=== PATIENT | male | born 1950 | race Caucasian/White ===

== ENCOUNTER 2017-09-23 09:22 | Emergency (ER) | payer MEDICARE ==
[~2017-09-23] VITALS: Ht 190.5 cm; Wt 108.9 kg
--- OUTSIDE RECORDS SUMMARY | 2017-09-23 09:20 | XMS REPORT | Clinical Summary ---
Author Author [facility] Organization [facility] Address Unknown Phone Unavailable Care Team Providers Care Cabinet Professional Name Role Phone Justin Noe DO PCP Allergies Active Allergy Reactions Severity Noted Date Comments Penicillins 10/07/2016 Current Medications Prescription Sig. Disp. Refills Start End Date Status Date meloxicam (MOBIC) 15 mg Take 1 tablet (15 mg 30 tablet 2 06/03/20 Active tablet total) by mouth daily. 17 HYDROcodone-acetaminophen Take 1 tablet by mouth 10/31/19 Discontin (NORCO) 7.5-325 mg per every 6 (six) hours as 17 ued tablet needed for moderate pain. traMADol (ULTRAM) 50 mg Take 1 tablet (50 mg 30 tablet 0 10/09/ tablet total) by mouth every 6 17 17 (six) hours as needed for moderate pain for up to 30 doses. ciprofloxacin (CIPRO) 500 Take 1 tablet (500 mg 28 tablet 0 10/22/19 11/05/19 MG tablet total) by mouth 2 (two) 17 17 times a day for 14 days. meloxicam (MOBIC) 15 mg Take 15 mg by mouth 06/03/20 Discontin tablet daily. 17 ued cefTRIAXone (ROCEPHIN) 2 Infuse 2 g into a venous 04/21/20 05/31/20 g in 100 ML Mini-Bag Plus catheter daily for 40 17 17 days. acetaminophen-codeine Take 1-2 tablets by mouth 40 tablet 0 04/21/20 04/28/20 (TYLENOL WITH CODEINE #3) every 6 (six) hours as 17 17 300-30 mg per tablet needed for moderate pain for up to 7 days. acetaminophen-codeine Take 1 tablet by mouth 06/30/20 Discontin (TYLENOL WITH CODEINE #3) every 6 (six) hours as 17 ued 300-30 mg per tablet needed for moderate pain. Active Problems Problem Noted Date Infected hardware in left leg 04/16/2017 11/11/2016 Open fracture of calcaneus 10/07/2016 Encounters Date Type Specialty Care Team Description 09/17/2017 Telephone Orthopedic Surgery Sandie Kelly MD 09/01/2017 Office Visit Orthopedic Surgery Sandie Kelly MD Left foot pain (Primary Dx) 07/13/2017 Telephone Orthopedic Surgery Lydia Abrams MA 06/30/2017 Office Visit Orthopedic Surgery Sandie Kelly MD Open displaced avulsion fracture of tuberosity of left calcaneus with malunion, subsequent encounter (Primary Dx) 06/11/2017 Infusion Oncology Sandie Kelly MD Infected hardware in left leg, initial encounter (Primary Dx) 06/10/2017 Infusion Oncology Sandie Kelly MD Infected hardware in left leg, initial encounter (Primary Dx) 06/09/2017 Infusion Oncology Sandie Kelly MD Infected hardware in left leg, initial encounter (Primary Dx) 06/08/2017 Infusion Oncology Sandie Kelly MD Infected hardware in left leg, initial encounter (Primary Dx) 06/07/2017 Infusion Oncology Sandie Kelly MD Infected hardware in left leg, initial encounter (Primary Dx) 06/06/2017 Infusion Oncology Sandie Kelly MD Infected hardware in left leg, initial encounter (Primary Dx) 06/05/2017 Infusion Oncology Sandie Kelly MD Infected hardware in left leg, initial encounter (Primary Dx) 06/03/2017 Office Visit Orthopedic Surgery Sandie Kelly MD Infected hardware in left lower extremity, sequela (Primary Dx) 06/03/2017 Infusion Oncology Infected hardware in left leg, initial encounter (Primary Dx) 06/02/2017 Infusion Oncology Sandie Kelly MD Infected hardware in left leg, initial encounter (Primary Dx) 06/01/2017 Infusion Oncology Infected hardware in left leg, initial encounter (Primary Dx) 05/31/2017 Infusion Oncology Infected hardware in left leg, initial encounter (Primary Dx) 05/30/2017 Infusion Oncology Infected hardware in left leg, initial encounter (Primary Dx) 05/28/2017 Infusion Oncology Infected hardware in left leg, initial encounter (Primary Dx) 05/27/2017 Infusion Oncology Infected hardware in left leg, initial encounter (Primary Dx) 05/26/2017 Telephone Orthopedic Surgery Sandie Kelly MD 05/24/2017 Infusion Oncology Infected hardware in left leg, initial encounter (Primary Dx) 05/23/2017 Infusion Oncology Infected hardware in left leg, initial encounter (Primary Dx) 05/22/2017 Infusion Oncology Infected hardware in left leg, initial encounter (Primary Dx) 05/21/2017 Infusion Oncology Infected hardware in left leg, initial encounter (Primary Dx) 05/20/2017 Infusion Oncology Infected hardware in left leg, initial encounter (Primary Dx) 05/19/2017 Infusion Oncology Infected hardware in left leg, initial encounter (Primary Dx) 05/18/2017 Infusion Oncology Infected hardware in left leg, initial encounter (Primary Dx) 05/16/2017 Infusion Oncology Infected hardware in left leg, initial encounter (Primary Dx) 05/13/2017 Infusion Oncology Infected hardware in left leg, initial encounter (Primary Dx) 05/12/2017 Infusion Oncology Infected hardware in left leg, initial encounter (Primary Dx) 05/11/2017 Infusion Oncology Infected hardware in left leg, initial encounter (Primary Dx) 05/10/2017 Infusion Oncology Sandie Kelly MD Infected hardware in left leg, initial encounter (Primary Dx) 05/09/2017 Infusion Oncology Infected hardware in left leg, initial encounter (Primary Dx) 05/08/2017 Infusion Oncology Infected hardware in left leg, initial encounter (Primary Dx) 05/07/2017 Infusion Oncology Infected hardware in left leg, initial encounter (Primary Dx) 05/06/2017 Infusion Oncology Infected hardware in left leg, initial encounter (Primary Dx) 05/05/2017 Infusion Oncology Infected hardware in left leg, initial encounter (Primary Dx) 05/05/2017 Office Visit Orthopedic Surgery Sandie Kelly MD Open displaced avulsion fracture of tuberosity of left calcaneus with malunion, subsequent encounter (Primary Dx) 05/03/2017 Infusion Oncology Infected hardware in left leg, initial encounter (Primary Dx) 05/02/2017 Infusion Oncology Infected hardware in left leg, initial encounter (Primary Dx) 05/01/2017 Infusion Oncology Infected hardware in left leg, initial encounter (Primary Dx) 04/30/2017 Infusion Oncology Infected hardware in left leg, initial encounter (Primary Dx) 04/28/2017 Infusion Oncology Infected hardware in left leg, initial encounter (Primary Dx) 04/27/2017 Infusion Oncology Infected hardware in left leg, initial encounter (Primary Dx) 04/26/2017 Infusion Oncology Infected hardware in left leg, initial encounter (Primary Dx) 04/25/2017 Infusion Oncology Infected hardware in left leg, initial encounter (Primary Dx) 04/24/2017 Infusion Oncology Infected hardware in left leg, initial encounter (Primary Dx) 04/23/2017 Infusion Oncology Infected hardware in left leg, initial encounter (Primary Dx) 04/23/2017 Orders Only Oncology Suni Aguilar, PADMA 04/22/2017 Infusion Oncology Sandie Kelly MD Infected hardware in left leg, initial encounter (Primary Dx) 04/16/2017 Hospital General Surgery Sandie Kelly MD Encounter for removal of - Encounter internal fixation device; 04/21/2017 Infection following procedure, subsequent encounter; Acute osteomyelitis-ankle/foot, left 04/16/2017 Procedure Pass General Surgery 04/16/2017 Surgery General Surgery Sandie Kelly MD Hardware Removal (colonize bone screws), Debridement Left Heel, Culture Left Calcaneum 04/03/2017 Anesthesia General Surgery Mayelin Saavedra Event MD 04/01/2017 Hospital Radiology Sandie Kelly MD Preop testing Encounter 04/01/2017 Pre-Admit Pre-Admission Testing Sandie Kelly MD Preop testing (Primary Testing Dx) Appointment 03/17/2017 Office Visit Orthopedic Surgery Sandie Kelly MD Open displaced avulsion fracture of tuberosity of left calcaneus with malunion, subsequent encounter (Primary Dx) 02/17/2017 Office Visit Orthopedic Surgery Sandie Kelly MD Open displaced avulsion fracture of tuberosity of left calcaneus with malunion, subsequent encounter (Primary Dx) 01/14/2017 Office Visit Orthopedic Surgery Sandie Kelly MD Open displaced avulsion fracture of tuberosity of left calcaneus with malunion, subsequent encounter (Primary Dx) 01/14/2017 Telephone Orthopedic Sandie Sharma MD 12/17/2016 Office Visit Orthopedic Surgery Sandie Kelly MD Arthralgia of left ankle (Primary Dx) 12/02/2016 Telephone Orthopedic Sandie Sharma MD 11/27/2016 Office Visit Orthopedic Surgery Sandie Kelly MD Open displaced avulsion fracture of tuberosity of left calcaneus with malunion, subsequent encounter (Primary Dx) 11/19/2016 Office Visit Orthopedic Surgery Sandie Kelly MD Open displaced avulsion fracture of tuberosity of left calcaneus with malunion, subsequent encounter (Primary Dx) 11/11/2016 Office Visit Orthopedic Surgery Sandie Kelly MD Open displaced avulsion fracture of tuberosity of left calcaneus with malunion, subsequent encounter (Primary Dx) 11/07/2016 Office Visit Orthopedic Surgery Sandie Kelly MD Open displaced avulsion fracture of tuberosity of left calcaneus with malunion, subsequent encounter (Primary Dx) 11/04/2016 Office Visit Orthopedic Surgery Sandie Kelly MD Open displaced avulsion fracture of tuberosity of left calcaneus with malunion, subsequent encounter (Primary Dx) 10/30/2016 Office Visit Orthopedic Surgery Sandie Kelly MD 10/28/2016 Office Visit Orthopedic Surgery Sandie Kelly MD Open displaced avulsion fracture of tuberosity of left calcaneus with malunion, subsequent encounter (Primary Dx) 10/23/2016 Office Visit Orthopedic Sandie Sharma MD 10/21/2016 Office Visit Orthopedic Sandie Sharma MD 10/21/2016 Documentation Orthopedic Surgery Andrey Rios MD 10/21/2016 Orders Only Orthopedic Surgery Andrey Rios MD 10/16/2016 Office Visit Orthopedic Surgery Sandie Kelly MD Open displaced avulsion fracture of tuberosity of left calcaneus with malunion, subsequent encounter (Primary Dx) 10/14/2016 Office Visit Orthopedic Surgery Sandie Kelly MD Open displaced avulsion fracture of tuberosity of left calcaneus with malunion, subsequent encounter (Primary Dx) 10/09/2016 Office Visit Orthopedic Surgery Sandie Kelly MD Open displaced avulsion fracture of tuberosity of left calcaneus with malunion, subsequent encounter (Primary Dx) 10/07/2016 Office Visit Orthopedic Surgery Sandie Kelly MD Chronic pain of left ankle (Primary Dx); Open displaced avulsion fracture of tuberosity of left calcaneus with malunion, subsequent encounter 09/25/2016 [facility] General Surgery Physician, Emergency, MD - Encounter Kurt Chacko, 09/28/2016 DO Jayashree Serna MD 09/25/2016 Orders Only Emergency Medicine Kurt Chacko, after 09/22/2016 Family History Medical History Relation Name Comments Cancer Mother Relation Name Status Comments Mother Lung cancer Social History Tobacco Use Types Packs/Day Years Used Date Never Smoker Smokeless Tobacco: Never Used Alcohol Use Drinks/Week oz/Week Comments Yes 2 Cans of 1.2 2 week beer Sex Assigned at Date Recorded Not on file Last Filed Vital Signs Vital Sign Reading Time Taken Blood Pressure 156/87 06/11/2017 6:41 AM CDT Pulse 75 06/11/2017 6:41 AM CDT Temperature 37.1 C (98.7 F) 06/11/2017 6:41 AM CDT Respiratory Rate 19 06/11/2017 6:41 AM CDT Oxygen Saturation 98% 06/11/2017 6:41 AM CDT Inhaled Oxygen - - Concentration Weight 99.8 kg (220 lb) 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 HC US GUIDED VASCULAR Routine 04/18/2017 Results for this ACCESS 7:01 PM CDT procedure are in the results section. HC CVL PICC INSERT 5 YRS Routine 04/18/2017 Results for this OR > 7:01 PM CDT procedure are in the results section. IL AN ELECTIVE Routine 04/16/2017 SUPRAGLOTTIC AIRWAY 1:15 PM CDT Procedure Note - Imelda Augustin, MACHINE OPERATOR HELPER - 04/16/2017 1:14 PM CDT Airway Date/Time: 04/16/2017 1:11 PM Performed by: IMELDA AUGUSTIN Authorized by: IMELDA AUGUSTIN Location: OR Urgency: Elective Difficult Airway: No Anesthesio logist: EDU HOWARD Resident/C RNA: IMELDA AUGUSTIN Preoxygena moy with 100% O2: Yes C-spine Precaution s Maintained Throughout : Yes Mask Ventilatio n: Easy mask Final Airway Type: Supraglott ic airway Final LMA: Classic LMA Size: 5 Number of Attempts at Approach: 1 after 09/22/2016 Results * Estimated GFR (09/01/2017 1:50 PM) Only the most recent of 8 results within the time period is included. Component Value Ref Range GFR Non Af Amer 75 mL/min/1.73 m2 GFR Af Amer >90 mL/min/1.73 m2 Comment: Chronic kidney disease: <60 mL/min/1.73m2 Kidney failure: <15 mL/min/1.73m2 The estimated GFR is calculated from the IDMS-traceable Modification of Diet in Renal Disease Equation. The accuracy of the calculation is poor when the creatinine is normal. Calculated values >90 mL/min/1.73m2 are not reported. This equation has not been validated in children (<18 years), women, the elderly (>70 years), or ethnic groups other than Caucasians and Americans. Specimen Performing Laboratory Plasma specimen [facility] DEPARTMENT OF PATHOLOGY AND GENOMIC MEDICINE [address] [place] [address] * Basic metabolic panel (09/01/2017 1:50 PM) Only the most recent of 7 results within the time period is included. Component Value Ref Range Sodium 139 135 - 150 mEq/L Potassium 4.5 3.5 - 5.0 mEq/L Chloride 104 100 - 109 mEq/L CO2 28 24 - 32 mmol/L Anion gap 7 7 - 15 mEq/L Comment: Starting from November , anion gap calculation no longer incorporates potassium. Please note the change. BUN 27 (H) 7 - 18 mg/dL Creatinine 1.0 0.8 - 1.5 mg/dL Glucose 53 (L) 65 - 100 mg/dL Calcium 9.2 8.6 - 10.7 mg/dL Specimen Performing Laboratory Plasma specimen [facility] DEPARTMENT OF PATHOLOGY AND GENOMIC MEDICINE [address] [place] [address] * XR Calcaneus 2+ Vw Left (09/01/2017 1:13 PM) Only the most recent of 7 results within the time period is included. Specimen Performing Laboratory [facility] [address] [place] [id number] Narrative AP and axial view of the left heel: The displaced comminuted calcaneal tuberosity fracture has healed and is one solid mass. There is certainly some malunion * PICC INSERTION (04/18/2017 7:01 PM) John Dickey 04/18/20177:01 PM PICC insertion Date/Time: 04/18/2017 7:00 PM Performed by: ZENON DICKEY Authorized by: SANDIE KELLY Consent: Consent obtained:Verbal and written Consent given by:Patient Risks discussed: arterial puncture, incorrect placement, nerve damage, bleeding, infection, superficial thrombus and deep vein thrombus Alternatives discussed:Delayed treatment and alternative treatment Smoot protocol: Procedure explained and questions answered to patient or proxy's satisfaction: yes Relevant documents present and verified: yes Test results available and properly labeled: yes Imaging studies available: yes Required blood products, implants, devices, and special equipment available: yes Site/side marked: yes Immediately prior to procedure, a time out was called: yes Patient identity confirmed:Verbally with patient, arm band, provided demographic data and hospital-assigned identification number Pre-procedure details: Hand hygiene: Hand hygiene performed prior to insertion Sterile barrier technique: All elements of maximal sterile technique followed Skin preparation:ChloraPrep Skin preparation agent: Skin preparation agent completely dried prior to procedure Anesthesia (see MAR for exact dosages): Anesthesia method:Local infiltration Local anesthetic:Lidocaine 1% w/o epi Route of administration:Subcutaneous PICC Line Placement Details (Will create an LDA): Extremity Cirumference Upper (cm):41 Extremity Circumference Forearm (cm):32 Extremity Circumference Site:37 Patient position:Flat Vessel Size (mm):2 Indication:Known assistant terminal manager IV therapy Location:Right basilic Site selection rationale:Pt is right arm dominant, best choice of vein r/t size and no visible nerves. Device Type:Valved Catheter size:5 Fr PICC Characteristics: Catheter Brand:PowerPICC SOLO Catheter with Sherlock 3 CG Tip Positioning System Stylet External Catheter Length (cm):0 Internal Catheter Length (cm):43 Total Catheter Length (cm):43 Catheter Lot Number:[id number] Catheter Expiration Date:01/07/1918 Micro-Introducer Lot Number:[id number] Micro-Introducer Expiration Date:01/07/1918 Procedure Details: Landmarks identified: yes Ultrasound guidance: yes Number of attempts:2 Number of PICC kits used during procedure:1 Purpose of procedure:PICC Placement Successful PICC Placement: Yes Patency/Placement:Flushes without difficulty, flushed with 10 mL normal saline, positive blood return and injection cap placed PICC placed utlizing ultrasound-guided Modified Seldinger Technique: Yes Dressing/Securement:Gauze applied, catheter securement device and transparent semipermeable dressing Blood Loss Amount:Less than 20 mL Post-Procedure Details: Post-procedure:Dressing applied Name of provider who confirmed tip placement::Zenon Dickey RN, PICC nurse confirmed PICC tip in the SVC @ the atrial caval junction by 3 CG tip positioning system stylet. See EKG tracing in pt chart. Patient tolerance of procedure:Tolerated with difficulty Comments: Pt nervous, anxious but pleasant. Taught on process and lidocaine for numbing/pain management. Pt verbalized understanding and agreed to catheter placement. No complications noted. Following catheter placement, taught pt on home care, dressing changes and f/u with PCP or calling vascular access nurses for trouble shooting or answering pt questions. Report to Annie López RN, pt primary bedside nurse. * Hemoglobin & hematocrit (04/17/2017 6:22 AM) Component Value Ref Range HGB 10.9 (L) 13.0 - 17.3 g/dL HCT 34.6 34.0 - 45.0 % Specimen Performing Laboratory Blood [facility] DEPARTMENT OF PATHOLOGY AND GENOMIC MEDICINE [address] [place] [address] * Urinalysis screen and microscopy, with reflex to culture (04/16/2017 9:54 PM) Component Value Ref Range Specimen site Clean catch Color, UA Straw Appearance, UA Clear Specific gravity, UA 1.011 1.001 - 1.035 pH, UA 5.0 5.0 - 8.5 Protein, UA Negative Negative Glucose, UA Negative Negative Ketones, UA Negative Negative Bilirubin, UA Negative Negative Blood, UA Negative Negative Nitrite, UA Negative Negative Urobilinogen, UA Negative <2.0 Leukocyte esterase, UA Negative Negative WBC, UA None seen 0 - 1 /HPF RBC, UA 3 (H) 0 - 1 /HPF Bacteria, UA None seen None seen Yeast, UA None seen Yeast with pseudohyphae, None seen UA Specimen Performing Laboratory Urine [facility] DEPARTMENT OF PATHOLOGY AND GENOMIC MEDICINE [address] [place] [place] [address] * Urine culture (04/16/2017 9:53 PM) Component Value Ref Range Urine culture SEE COMMENTComment: Bacteriuria screen negative. Specimen Performing Laboratory [facility] DEPARTMENT OF PATHOLOGY AND GENOMIC MEDICINE [address] [place] [address] * Surgical pathology request (04/16/2017 3:02 PM) Component Value Ref Range Surgical pathology report See link below for PDF Lab Report Specimen Performing Laboratory [facility] DEPARTMENT OF PATHOLOGY AND GENOMIC MEDICINE [address] [place] [address] * FL < 1 Hour (04/16/2017 2:08 PM) Specimen [place] [address] Narrative EXAMINATION:FL 1 HOUR CLINICAL HISTORY: Fluoroscopic guidance. IMPRESSION: Fluoroscopy was provided. No radiologist present.Please see procedure report for discussion of procedure, findings. [facility]-[id number] Procedure Note Interface, Radiology Results Incoming - 04/16/2017 2:12 PM CDT EXAMINATION: FL 1 HOUR CLINICAL HISTORY: Fluoroscopic guidance. IMPRESSION: Fluoroscopy was provided. No radiologist present. Please see procedure report for discussion of procedure, findings. [facility]-[id number] * Fungus smear (04/16/2017 1:35 PM) Component Value Ref Range Fungus smear No fungi observed. Comment: Specimen Information Specimen Source: Fluid Specimen Site: Heel, left Specimen Performing Laboratory Heel, left [facility] DEPARTMENT OF PATHOLOGY AND GENOMIC MEDICINE [address] [place] [address] * AFB culture (04/16/2017 1:35 PM) Component Value Ref Range AFB culture isolate No growth after 6 weeks of incubation. Comment: Specimen Information Specimen Source: Fluid Specimen Site: Heel, left Specimen Performing Laboratory Tissue - Heel, left [facility] DEPARTMENT OF PATHOLOGY AND GENOMIC MEDICINE [address] [place] [address] * Aerobic culture (04/16/2017 1:35 PM) Component Value Ref Range Aerobic culture isolate Staphylococcus aureus Few susceptibility to follow (A) Comment: Specimen Information Specimen Source: Fluid Specimen Site: Heel, left Specimen Performing Laboratory Tissue - Heel, left [facility] OF PATHOLOGY [facility] GENOMIC MEDICINE [address] [place] [address] Organism Antibiotic Method Susceptibility Staphylococcus aureus Clindamycin WANDA <=0.5 mcg/mL: Resistant Staphylococcus aureus Erythromycin WANDA >4 mcg/mL: Resistant Staphylococcus aureus Levofloxacin WANDA >4 mcg/mL: Resistant Staphylococcus aureus Linezolid WANDA 2 mcg/mL: Susceptible Staphylococcus aureus Minocycline WANDA <=1 mcg/mL: Susceptible Staphylococcus aureus Oxacillin WANDA <=0.25 mcg/mL: Susceptible Staphylococcus aureus Penicillin G WANDA <=0.125 mcg/mL: Susceptible Staphylococcus aureus Rifampin WANDA <=0.5 mcg/mL: Susceptible Staphylococcus aureus Trimethoprim/Sulfamethoxa WANDA <=0.5/9.5 mcg/mL: zole Susceptible Staphylococcus aureus Tetracycline WANDA <=0.5 mcg/mL: Susceptible Staphylococcus aureus Vancomycin WANDA 1 mcg/mL: Susceptible * Gram stain (04/16/2017 1:35 PM) Component Value Ref Range Gram stain isolate No WBC's or organisms seen. Comment: Specimen Information Specimen Source: Fluid Specimen Site: Heel, left Specimen Performing Laboratory [facility] [place] [address] * AFB stain (04/16/2017 1:35 PM) Component Value Ref Range AFB stain No acid fast bacilli (AFB) seen. Comment: Specimen Information Specimen Source: Fluid Specimen Site: Heel, left Specimen Performing Laboratory [facility] [place] [address] * Fungus culture (04/16/2017 1:35 PM) Component Value Ref Range Fungus culture isolate No growth after 4 weeks of incubation. Comment: Specimen Information Specimen Source: Fluid Specimen Site: Heel, left Specimen Performing Laboratory Tissue - [facility] [place] [address] * Anaerobic culture (04/16/2017 1:35 PM) Component Value Ref Range Anaerobic culture isolate No anaerobic organisms isolated. Comment: Specimen Information Specimen Source: Fluid Specimen Site: Heel, left Specimen Performing Laboratory Tissue - [facility] [place] [address] * XR Chest 2 Vw (04/01/2017 11:07 AM) Specimen Performing [facility] [address] [place] [address] Narrative EXAMINATION:XR CHEST 2 VW CLINICAL HISTORY:Z01.818 Encounter for other preprocedural examination, preop COMPARISON:Chest x-ray 09/25/2016 IMPRESSION: Frontal and lateral views reveal an improved cardiac mediastinal silhouette. Lungs are clear. Pleural margins are sharp. The remainder of the examination is unchanged. [facility]-[id number] Procedure Note Interface, Radiology Results Incoming - 04/01/2017 11:20 AM CDT EXAMINATION: XR CHEST 2 VW CLINICAL HISTORY: Z01.818 Encounter for other preprocedural examination, preop COMPARISON: Chest x-ray 09/25/2016 IMPRESSION: Frontal and lateral views reveal an improved cardiac mediastinal silhouette. Lungs are clear. Pleural margins are sharp. The remainder of the examination is unchanged. [id number] * ECG Pre/Post Op (04/01/2017 10:28 AM) Component Value Ref Range Ventricular rate 72 Atrial rate 72 IL interval 170 QRSD interval 92 QT interval 390 QTC interval 427 P axis 1 6 QRS axis 1 -44 T wave axis 52 EKG impression Normal sinus rhythm-Left axis deviation-Septal infarct , age undetermined-Abnormal ECG-In automated comparison with ECG of 25-SEP-2016 11:27,-Septal infarct is now present- Specimen Performing Laboratory [facility] M[facility] [address] [place] [address] * Partial thromboplastin time, activated (04/01/2017 10:17 AM) Component Value Ref Range PTT 35.0 23.0 - 36.0 sec Comment: PTT therapeutic range for unfractionated heparin is 61.0-112.0 seconds which corresponds to Anti-Xa 0.3-0.7 U/ml. Note: Change in Panic Value The PTT Panic Value is changing from 110 sec. to 100 sec. due to new instrumentation and reagents. Correlation studies have been performed to validate this result. Specimen Performing Laboratory Blood [facility] DEPARTMENT OF PATHOLOGY AND GENOMIC MEDICINE [address] [place] [address] * Prothrombin time with INR (04/01/2017 10:17 AM) Component Value Ref Range Prothrombin time 13.1 12.0 - 15.0 sec INR 0.99 0.92 - 1.12 Comment: For patients on anticoagulant therapy, reference ranges below: Indication: INR Value Treatment of Venous Thrombosis, 2.0-3.0 pulmonary emboli, or prophylaxis of a venous thrombosis, or systemic emboli. High dose, high risk patients 3.0-4.5 with mechanical valves. NOTE: INR values over 3.0 are sometimes associated with gastrointestinal hemorrhage, especially values over 4.0. Specimen Performing Laboratory Blood [facility] DEPARTMENT OF PATHOLOGY AND GENOMIC MEDICINE [address] [place] [address] * CBC with platelet and differential (04/01/2017 10:17 AM) Only the most recent of 5 results within the time period is included. Component Value Ref Range WBC 6.8 4.2 - 11.0 k/uL RBC 4.91 4.04 - 5.86 m/uL HGB 12.8 (L) 13.0 - 17.3 g/dL HCT 39.9 34.0 - 45.0 % MCV 81.3 80.0 - 98.0 fL MCH 26.1 (L) 27.0 - 34.0 pg MCHC 32.1 31.5 - 36.5 g/dL RDW - SD 48.6 37.0 - 51.0 fL MPV 10.6 (H) 7.4 - 10.4 fL Platelet count 371 150 - 400 k/uL Nucleated RBC 0.00 /100 WBC Neutrophils 71.6 (H) 36.0 - 66.0 % Lymphocytes 14.2 (L) 24.0 - 44.0 % Monocytes 8.7 (H) 0.0 - 6.0 % Eosinophils 4.6 0.0 - 6.0 % Basophils 0.6 0.0 - 1.2 % Immature granulocytes 0.3 0.0 - 1.0 % Specimen Performing Laboratory Blood [facility] DEPARTMENT OF PATHOLOGY AND GENOMIC MEDICINE [address] [place] [address] * Comprehensive metabolic panel (04/01/2017 10:17 AM) Component Value Ref Range Sodium 140 135 - 150 mEq/L Potassium 4.4 3.5 - 5.0 mEq/L Chloride 103 100 - 109 mEq/L CO2 29 24 - 32 mmol/L Anion gap 8 7 - 15 mEq/L Comment: Starting from November , anion gap calculation no longer incorporates potassium. Please note the change. BUN 15 7 - 18 mg/dL Creatinine 1.2 0.8 - 1.5 mg/dL Glucose 94 65 - 100 mg/dL Calcium 9.3 8.6 - 10.7 mg/dL Protein 7.9 6.3 - 8.2 g/dL Albumin 3.8 3.2 - 5.0 g/dL A/G ratio 0.9 0.7 - 3.8 Alkaline phosphatase 151 (H) 30 - 120 U/L AST 21 15 - 37 U/L ALT 24 (L) 30 - 65 U/L Total bilirubin 0.4 0.2 - 1.2 mg/dL Specimen Performing Laboratory Plasma specimen [facility] DEPARTMENT OF PATHOLOGY AND GENOMIC MEDICINE [address] [place] [address] * XR Ankle 3+ Vw Left (10/07/2016 11:02 AM) Specimen Performing Laboratory [facility] [address] [place] [address] Narrative And ankle x-ray series was mistakenly ordered by the tech as opposed to appear calcaneus series. These however show that the AccuTrack screws that had been previously placed for a tuberosity fracture lost fixation and there is been proximal migration of the tuberosity fragment that had been secured * OR Extremity Up To 1 Hour Left (09/25/2016 9:30 PM) Specimen Performing Laboratory [facility] [address] [place] [address] Narrative EXAMINATION:OR EXTREMITY UP TO 1 HR LEFT CLINICAL HISTORY:ORIF LEFT CALCANEUS LAC TO ARTERY WORK RELATED IMPRESSION: 1. Fluoroscopy was provided in the operating. I was not present during the procedure. 2. Please refer to the operative report for findings. 3. Total Dose:86 seconds and 8 spot fluoroscopic images Procedure Note Interface, Radiology Conversion - 09/26/2016 12:29 AM ENGINEER EXAMINATION: OR EXTREMITY UP TO 1 HR LEFT CLINICAL HISTORY: ORIF LEFT CALCANEUS LAC TO ARTERY WORK RELATED IMPRESSION: 1. Fluoroscopy was provided in the operating. I was not present during the procedure. 2. Please refer to the operative report for findings. 3. Total Dose: 86 seconds and 8 spot fluoroscopic images * XR Chest 1 Vw Portable (09/25/2016 4:17 PM) Specimen Performing Laboratory [facility] [address] [place] [address] Narrative PROCEDURE:CHEST PORTABLE 1 VIEW CLINICAL HISTORY:pre op preop COMPARISON:None. TECHNIQUE: A single view of the chest was performed in the AP upright projection. FINDINGS: No active pleural, parenchymal, or mediastinal abnormality is noted. No gross acute abnormality is demonstrated of the visualized bones of the thorax. IMPRESSION: No gross acute abnormality in the chest. [facility]-[id number] Procedure Note Interface, Radiology Conversion - 09/25/2016 4:25 PM ENGINEER PROCEDURE: CHEST PORTABLE 1 VIEW CLINICAL HISTORY: pre op preop COMPARISON: None. TECHNIQUE: A single view of the chest was performed in the AP upright projection. FINDINGS: No active pleural, parenchymal, or mediastinal abnormality is noted. No gross acute abnormality is demonstrated of the visualized bones of the thorax. IMPRESSION: No gross acute abnormality in the chest. [facility]-[id number] * Type and screen (09/25/2016 11:33 AM) Component Value Ref Range ABO grouping A Rh type POS Antibody screen (gel) NEG Specimen Performing Laboratory [facility] DEPARTMENT OF PATHOLOGY AND GENOMIC MEDICINE [address] [place] [address] * ECG 12 lead (09/25/2016 11:27 AM) Component Value Ref Range Ventricular rate 55 Atrial rate 55 [place] interval 202 QRSD interval 90 QT interval 416 QTC interval 397 P axis 1 13 QRS axis 1 -16 T wave axis 39 EKG impression Sinus bradycardia-Otherwise normal ECG-No previous ECGs available- Specimen Performing Laboratory [facility] [address] [place] [address] * XR Ankle 3+ Vw Right (09/25/2016 10:43 AM) Specimen Performing Laboratory [facility] [address] [place] [address] Narrative EXAMINATION:ANKLE 3V RIGHT CLINICAL HISTORY:laceration at the achilles attachment COMPARISON:None. TECHNIQUE: AP, lateral, and oblique radiographs of the left ankle are obtained. IMPRESSION: 1.Comminuted fracture of the calcaneal tuberosity, with impaction, and mild superior displacement of the posterior superior tuberosity fragment. 2.No dislocation or retained foreign body. 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 4.Recommend CT for further evaluation. [facility]-[id number] Procedure Note Interface, Radiology Conversion - 09/25/2016 10:51 AM ENGINEER EXAMINATION: ANKLE 3V RIGHT CLINICAL HISTORY: laceration at the achilles attachment COMPARISON: None. TECHNIQUE: AP, lateral, and oblique radiographs of the left ankle are obtained. IMPRESSION: 1.Comminuted fracture of the calcaneal tuberosity, with impaction, and mild superior displacement of the posterior superior tuberosity fragment. 2.No dislocation or retained foreign body. 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 4.Recommend CT for further evaluation. [id number] after 09/22/2016 Insurance Payer Benefit Subscriber ID Type Phone Address Plan / Group MEDICARE MEDICARE xxxxxxxxxx Medicare [place], [place] PART A AND B GEOVANY WELCH Case Rate Self 1950 Home: [place] [place] [address]
[~2017-09-23 09:22] MED LIST: GABAPENTIN100 MG PO; PREDNISONE20 MG PO; TYLENOL WITH C1 EACH PO; Z.0.BACTRIM DS TAB1 PO; Z.0.NORCO 10-325 T1 PO; Z.0.ZYLOPRIM300 MG
--- OUTSIDE RECORDS SUMMARY | 2017-09-23 09:26 | XMS REPORT | Clinical Summary ---
Author Author [facility] Organization [facility] Address Unknown Phone Unavailable Care Team Providers Care Educational Therapist Name Role Phone Justin Noe DO PCP [...] encounter (Primary Dx) 06/06/2017 Infusion Oncology Sandie eKlly MD Infected hardware in left leg, initial [...] left calcaneus with malunion, subsequent encounter 09/25/2016 [facility] General Surgery Physician, Emergency, MD - [...] 99.8 kg (220 lb) 09/01/2017 1:01 PM EDUCATION PROFESSOR Height 188 cm (6' 2") 09/01/2017 1:01 PM EDUCATION PROFESSOR Body Mass Index 28.25 09/01/2017 1:01 PM EDUCATION PROFESSOR Plan of Treatment Health Maintenance Due Date [...] CDT procedure are in the results section. [place] AN ELECTIVE Routine 04/16/2017 SUPRAGLOTTIC AIRWAY 1:15 PM CDT Procedure Note - Imelda Augustin, PRODUCTION CONTROL EXPERT - 04/16/2017 1:14 PM CDT Airway Date/Time: [...] and Americans. Specimen Performing Laboratory Plasma specimen [facility] DEPARTMENT OF PATHOLOGY AND GENOMIC MEDICINE [address] [place] [address] * Basic metabolic panel (09/01/2017 1:50 PM) [...] 10.7 mg/dL Specimen Performing Laboratory Plasma specimen [facility] DEPARTMENT OF PATHOLOGY AND GENOMIC MEDICINE [address] [place] [address] * XR Calcaneus 2+ Vw Left (09/01/2017 1:13 PM) Only the most recent of 7 results within the time period is included. Specimen Performing Laboratory [facility] [address] [place] [id number] Narrative AP and axial view of the [...] thrombus Alternatives discussed:Delayed treatment and alternative treatment [place] protocol: Procedure explained and questions answered to [...] Site:37 Patient position:Flat Vessel Size (mm):2 Indication:Known terminal gauger supervisor IV therapy Location:Right basilic Site selection rationale:Pt is right arm dominant, best choice of vein r/t size and no visible nerves. Device Type:Valved Catheter size:5 Fr PICC Characteristics: Catheter Brand:PowerPICC SOLO Catheter with Sherlock 3 CG Tip Positioning System Stylet External Catheter Length (cm):0 Internal Catheter Length (cm):43 Total Catheter Length (cm):43 Catheter Lot Number:[id number] Catheter Expiration Date:01/07/1918 Micro-Introducer Lot Number:[id number] Micro-Introducer Expiration Date:01/07/1918 Procedure Details: Landmarks identified: [...] - 45.0 % Specimen Performing Laboratory Blood [facility] DEPARTMENT OF PATHOLOGY AND GENOMIC MEDICINE [address] [place] [address] * Urinalysis screen and microscopy, with reflex [...] None seen UA Specimen Performing Laboratory Urine [facility] DEPARTMENT OF PATHOLOGY AND GENOMIC MEDICINE [address] [place] [address] * Urine culture (04/16/2017 9:53 PM) Component Value Ref Range Urine culture SEE COMMENTComment: Bacteriuria screen negative. Specimen Performing Laboratory [facility] DEPARTMENT OF PATHOLOGY AND GENOMIC MEDICINE [address] [place] [address] * Surgical pathology request (04/16/2017 3:02 PM) Component Value Ref Range Surgical pathology report See link below for PDF Lab Report Specimen Performing Laboratory [facility] DEPARTMENT OF PATHOLOGY AND GENOMIC MEDICINE [address] [place] [address] * FL < 1 Hour (04/16/2017 2:08 PM) [place] [address] Narrative EXAMINATION:FL 1 HOUR CLINICAL HISTORY: Fluoroscopic guidance. IMPRESSION: Fluoroscopy was provided. No radiologist present.Please see procedure report for discussion of procedure, findings. [facility]-[id number] Procedure Note Interface, Radiology Results Incoming - 04/16/2017 2:12 PM CDT EXAMINATION: FL 1 HOUR CLINICAL HISTORY: Fluoroscopic guidance. IMPRESSION: Fluoroscopy was provided. No radiologist present. Please see procedure report for discussion of procedure, findings. [facility]-[id number] * Fungus smear (04/16/2017 1:35 PM) Component Value Ref Range Fungus smear No fungi observed. Comment: Specimen Information Specimen Source: Fluid Specimen Site: Heel, left Specimen Performing Laboratory Heel, left [facility] DEPARTMENT OF PATHOLOGY AND GENOMIC MEDICINE [address] [place] [address] * AFB culture (04/16/2017 1:35 PM) Component Value Ref Range AFB culture isolate No growth after 6 weeks of incubation. Comment: Specimen Information Specimen Source: Fluid Specimen Site: Heel, left Specimen Performing Laboratory Tissue - Heel, left [facility] DEPARTMENT OF PATHOLOGY AND GENOMIC MEDICINE [address] [place] [address] * Aerobic culture (04/16/2017 1:35 PM) Component Value Ref Range Aerobic culture isolate Staphylococcus aureus Few susceptibility to follow (A) Comment: Specimen Information Specimen Source: Fluid Specimen Site: Heel, left Specimen Performing Laboratory Tissue - Heel, left [facility] OF PATHOLOGY [facility] GENOMIC MEDICINE [address] [place] [address] Organism Antibiotic Method Susceptibility Staphylococcus aureus Clindamycin [...] Specimen Site: Heel, left Specimen Performing Laboratory [facility] [place] [address] * AFB stain (04/16/2017 1:35 PM) Component Value Ref Range AFB stain No acid fast bacilli (AFB) seen. Comment: Specimen Information Specimen Source: Fluid Specimen Site: Heel, left Specimen Performing Laboratory [facility] [place] [address] * Fungus culture (04/16/2017 1:35 PM) Component Value Ref Range Fungus culture isolate No growth after 4 weeks of incubation. Comment: Specimen Information Specimen Source: Fluid Specimen Site: Heel, left Specimen Performing Laboratory Tissue - [facility] [place] [address] * Anaerobic culture (04/16/2017 1:35 PM) Component Value Ref Range Anaerobic culture isolate No anaerobic organisms isolated. Comment: Specimen Information Specimen Source: Fluid Specimen Site: Heel, left Specimen Performing Laboratory Tissue - [facility] [place] [address] * XR Chest 2 Vw (04/01/2017 11:07 AM) Specimen [facility] [address] [place] [address] Narrative EXAMINATION:XR CHEST 2 VW CLINICAL HISTORY:Z01.818 Encounter for other preprocedural examination, preop COMPARISON:Chest x-ray 09/25/2016 IMPRESSION: Frontal and lateral views reveal an improved cardiac mediastinal silhouette. Lungs are clear. Pleural margins are sharp. The remainder of the examination is unchanged. [facility]-[id number] Procedure Note Interface, Radiology Results Incoming - 04/01/2017 11:20 AM CDT EXAMINATION: XR CHEST 2 VW CLINICAL HISTORY: Z01.818 Encounter for other preprocedural examination, preop COMPARISON: Chest x-ray 09/25/2016 IMPRESSION: Frontal and lateral views reveal an improved cardiac mediastinal silhouette. Lungs are clear. Pleural margins are sharp. The remainder of the examination is unchanged. [facility][id number] * ECG Pre/Post Op (04/01/2017 10:28 AM) Component Value Ref Range Ventricular rate 72 Atrial rate 72 [place] interval 170 QRSD interval 92 QT interval 390 QTC interval 427 P axis 1 6 QRS axis 1 -44 T wave axis 52 EKG impression Normal sinus rhythm-Left axis deviation-Septal infarct , age undetermined-Abnormal ECG-In automated comparison with ECG of 25-SEP-2016 11:27,-Septal infarct is now present- Specimen Performing Laboratory [facility] [address] [place] [address] * Partial thromboplastin time, activated (04/01/2017 10:17 [...] validate this result. Specimen Performing Laboratory Blood [facility] DEPARTMENT OF PATHOLOGY AND GENOMIC MEDICINE [address] [place] [address] * Prothrombin time with INR (04/01/2017 10:17 [...] values over 4.0. Specimen Performing Laboratory Blood [facility] DEPARTMENT OF PATHOLOGY AND GENOMIC MEDICINE [address] [place] [address] * CBC with platelet and differential (04/01/2017 [...] - 1.0 % Specimen Performing Laboratory Blood [facility] DEPARTMENT OF PATHOLOGY AND GENOMIC MEDICINE [address] [place] [address] * Comprehensive metabolic panel (04/01/2017 10:17 AM) [...] 1.2 mg/dL Specimen Performing Laboratory Plasma specimen [facility] DEPARTMENT OF PATHOLOGY AND GENOMIC MEDICINE [address] [place] [address] * XR Ankle 3+ Vw Left (10/07/2016 11:02 AM) Specimen Performing Laboratory [facility] [address] [place] [address] Narrative And ankle x-ray series was mistakenly ordered by the tech as opposed to appear calcaneus series. These however show that the AccuTrack screws that had been previously placed for a tuberosity fracture lost fixation and there is been proximal migration of the tuberosity fragment that had been secured * OR Extremity Up To 1 Hour Left (09/25/2016 9:30 PM) Specimen Performing Laboratory [facility] [address] [place] [address] Narrative EXAMINATION:OR EXTREMITY UP TO 1 HR LEFT CLINICAL HISTORY:ORIF LEFT CALCANEUS LAC TO ARTERY WORK RELATED IMPRESSION: 1. Fluoroscopy was provided in the operating. I was not present during the procedure. 2. Please refer to the operative report for findings. 3. Total Dose:86 seconds and 8 spot fluoroscopic images Procedure Note Interface, Radiology Conversion - 09/26/2016 12:29 AM EDUCATION PROFESSOR EXAMINATION: OR EXTREMITY UP TO 1 HR [...] Portable (09/25/2016 4:17 PM) Specimen Performing Laboratory [facility] [address] [place] [address] Narrative PROCEDURE:CHEST PORTABLE 1 VIEW CLINICAL HISTORY:pre op preop COMPARISON:None. TECHNIQUE: A single view of the chest was performed in the AP upright projection. FINDINGS: No active pleural, parenchymal, or mediastinal abnormality is noted. No gross acute abnormality is demonstrated of the visualized bones of the thorax. IMPRESSION: No gross acute abnormality in the chest. [facility]-[id number] Procedure Note Interface, Radiology Conversion - 09/25/2016 4:25 PM EDUCATION PROFESSOR PROCEDURE: CHEST PORTABLE 1 VIEW CLINICAL HISTORY: pre op preop COMPARISON: None. TECHNIQUE: A single view of the chest was performed in the AP upright projection. FINDINGS: No active pleural, parenchymal, or mediastinal abnormality is noted. No gross acute abnormality is demonstrated of the visualized bones of the thorax. IMPRESSION: No gross acute abnormality in the chest. [facility]-[id number] * Type and screen (09/25/2016 11:33 AM) Component Value Ref Range ABO grouping A Rh type POS Antibody screen (gel) NEG Specimen Performing Laboratory [facility] DEPARTMENT OF PATHOLOGY AND GENOMIC MEDICINE [address] [place] [address] * ECG 12 lead (09/25/2016 11:27 AM) Component Value Ref Range Ventricular rate 55 Atrial rate 55 [place] interval 202 QRSD interval 90 QT interval 416 QTC interval 397 P axis 1 13 QRS axis 1 -16 T wave axis 39 EKG impression Sinus bradycardia-Otherwise normal ECG-No previous ECGs available- Specimen Performing Laboratory [facility] [address] [place] [address] * XR Ankle 3+ Vw Right (09/25/2016 10:43 AM) Specimen Performing Laboratory [facility] [address] [place] [address] Narrative EXAMINATION:ANKLE 3V RIGHT CLINICAL HISTORY:laceration at the achilles attachment COMPARISON:None. TECHNIQUE: AP, lateral, and oblique radiographs of the left ankle are obtained. IMPRESSION: 1.Comminuted fracture of the calcaneal tuberosity, with impaction, and mild superior displacement of the posterior superior tuberosity fragment. 2.No dislocation or retained foreign body. 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 4.Recommend CT for further evaluation. [facility]-[id number] Procedure Note Interface, Radiology Conversion - 09/25/2016 10:51 AM EDUCATION PROFESSOR EXAMINATION: ANKLE 3V RIGHT CLINICAL HISTORY: laceration at the achilles attachment COMPARISON: None. TECHNIQUE: AP, lateral, and oblique radiographs of the left ankle are obtained. IMPRESSION: 1.Comminuted fracture of the calcaneal tuberosity, with impaction, and mild superior displacement of the posterior superior tuberosity fragment. 2.No dislocation or retained foreign body. 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 4.Recommend CT for further evaluation. [id number] after 09/22/2016 Insurance Payer Benefit Subscriber ID Type Phone Address Plan / Group MEDICARE MEDICARE xxxxxxxxxx Medicare [place], [place] PART A AND B [employer]ANY WELCH Case Rate Self 1950 Home: [place] [place] [address]
[2017-09-23] MEDS ORDERED: ONDANSETRON HCL 4 MG ORAL DISINTEGRATING TAB PO STA (09:31)
[2017-09-23] MEDS ORDERED: HYDROMORPHONE 1MG/1ML INJ IM STA (09:31)
--- NOTE | 2017-09-23 10:28 | Diagnostic Imaging Report ---
PROCEDURE: X-RAY CHEST, TWO VIEWS COMPARISON: CT chest abdomen and pelvis 08/11/2011, chest radiograph 08/12/2011. INDICATIONS: FLU SYMPTOMS FINDINGS: The lungs are well-inflated. No focal consolidation, pleural effusion, or pneumothorax. Left suprahilar nodular opacity is shown to represent pleural calcifications on comparison CT from 2011. Stable cardiomediastinal contour with tortuosity and atherosclerotic calcification of the thoracic aorta. Normal heart size. No pulmonary edema. No acute osseous abnormality. Multilevel degenerative disc changes of the thoracic spine. CONCLUSION: No acute cardiopulmonary abnormality. Dictated by: Mendel Alford M.D. on 09/23/2017 at 10:28 Electronically approved by: Mendel Alford M.D. on 09/23/2017 at 10:28
== END 2017-09-23 10:38 | disposition home or self-care (01) ==
LOC: EDSTATUS 09:22 → ER 09:23
DX: R50.9 Fever, unspecified (principal); R05 Cough; J11.1 Influenza due to unidentified influenza virus with other respiratory manifestations; M06.9 Rheumatoid arthritis, unspecified; Z85.828 Personal history of other malignant neoplasm of skin
CPT/HCPCS: 71046; 83518; 87070; 87400; 99284; J1170

== ENCOUNTER 2020-07-12 14:15 | Inpatient (IN) | payer MEDICARE ==
[~2020-07-12] VITALS: Ht 190.5 cm; Wt 118.8 kg
[2020-07-12] MEDS ORDERED: MORPHINE SULFATE INJ 4 MG/ML INJ 1ML IM STA (14:34)
[2020-07-12] MEDS ORDERED: HYDROCODONE/APAP 10MG-325MG TAB PO STA (14:37)
[2020-07-12] MEDS ORDERED: HYDROMORPHONE 1MG/1ML INJ IV PRN (16:45)
[2020-07-12] MEDS ORDERED: MORPHINE SULFATE 2 MG/ML SYR 1ML IV PRN (16:45)
[2020-07-12 17:27] LABS: BASOPHILS % 0.5 % (0.0-1.0); EOSINOPHILS # (AUTO) 0.1 (0.0-0.4); EOSINOPHILS % 2.2 % (0.0-6.0); HEMATOCRIT 41.3 % (38.2-49.6); HEMOGLOBIN 13.1 g/dL (14.0-18.0); LYMPHOCYTES # (AUTO) 1.6 (1.0-3.2); LYMPHOCYTES % 28.4 % (18.0-39.1); MEAN CORPUSCULAR HEMOGLOBIN 26.2 pg (28-32); MEAN CORPUSCULAR HGB CONC 31.7 g/dL (31-35); MEAN CORPUSCULAR VOLUME 82.6 fL (81-99); MONOCYTES # (AUTO) 0.4 (0.2-0.8); NEUTROPHILS # (AUTO) 3.4 (2.1-6.9); NEUTROPHILS % 61.5 % (38.7-80.0); PLATELET COUNT 475 x10e3/uL (140-360); RED CELL DISTRIBUTION WIDTH 15.8 % (11.7-14.4)
[2020-07-12 17:47] LABS: ALANINE AMINOTRANSFERASE 20 IU/L (0-55); ALBUMIN 4.2 g/dL (3.5-5.0); ALBUMIN/GLOBULIN RATIO 1.1 (0.8-2.0); ALKALINE PHOSPHATASE 129 IU/L (40-150); ANION GAP 15.5 mmol/L (8-16); BLOOD UREA NITROGEN 19 mg/dL (7-26); BUN/CREATININE RATIO 21 (6-25); CALCIUM 9.6 mg/dL (8.4-10.2); CARBON DIOXIDE 26 mmol/L (22-29); CHLORIDE 101 mmol/L (98-107); CREATININE, SERUM 0.89 mg/dL (0.72-1.25); EST GLOMERULAR FILTRATION RATE > 60 ML/MIN (60-); GLUCOSE 99 mg/dL (74-118); POTASSIUM 4.5 mmol/L (3.5-5.1); SODIUM 138 mmol/L (136-145)
[2020-07-12] MEDS: ONDANSETRON HCL INJ 2MG/ML 2ML 2 MG/ML VIAL IV PRN (17:49)
[2020-07-12] MEDS: SODIUM CHLORIDE 0.9% 1000ML 1,000 ML IV SCH (17:49)
[2020-07-12 20:00] VITALS: BP 138/75
[2020-07-12] MEDS: HYDROMORPHONE 1MG/1ML INJ IV PRN (20:52)
[2020-07-12 21:02] VITALS: BP 120/87
[2020-07-12 23:20] VITALS: BP 120/87
[2020-07-13] VITALS (8 sets, daily range): BP systolic 139–163; BP diastolic 80–99
[2020-07-13] MEDS: HYDROMORPHONE 1MG/1ML INJ IV PRN ×9 (00:30→21:35)
[2020-07-13] MEDS ORDERED: ULTRAM50 MG PO (00:51)
[2020-07-13] MEDS ORDERED: MOBIC15 MG PO (00:51)
[2020-07-13] MEDS ORDERED: NAPROXEN250 MG PO (00:51)
[2020-07-13 06:32] LABS: BASOPHILS % 0.6 % (0.0-1.0); EOSINOPHILS # (AUTO) 0.2 (0.0-0.4); EOSINOPHILS % 2.5 % (0.0-6.0); HEMATOCRIT 37.5 % (38.2-49.6); HEMOGLOBIN 11.6 g/dL (14.0-18.0); LYMPHOCYTES # (AUTO) 1.6 (1.0-3.2); LYMPHOCYTES % 24.3 % (18.0-39.1); MEAN CORPUSCULAR HEMOGLOBIN 25.8 pg (28-32); MEAN CORPUSCULAR HGB CONC 30.9 g/dL (31-35); MEAN CORPUSCULAR VOLUME 83.5 fL (81-99); MONOCYTES # (AUTO) 0.7 (0.2-0.8); MONOCYTES % 10.2 % (4.4-11.3); NEUTROPHILS % 62.1 % (38.7-80.0); PLATELET COUNT 390 x10e3/uL (140-360); RED BLOOD COUNT 4.49 x10e6/uL (4.3-5.7); RED CELL DISTRIBUTION WIDTH 15.8 % (11.7-14.4)
[2020-07-13] MEDS: SODIUM CHLORIDE 0.9% 1000ML 1,000 ML IV SCH ×3 (06:55→16:45)
[2020-07-13 07:11] LABS: ALANINE AMINOTRANSFERASE 22 IU/L (0-55); ALBUMIN 3.2 g/dL (3.5-5.0); ALKALINE PHOSPHATASE 110 IU/L (40-150); ANION GAP 11.6 mmol/L (8-16); BLOOD UREA NITROGEN 25 mg/dL (7-26); BUN/CREATININE RATIO 27 (6-25); CALCIUM 8.8 mg/dL (8.4-10.2); CARBON DIOXIDE 27 mmol/L (22-29); CHLORIDE 104 mmol/L (98-107); CREATININE, SERUM 0.91 mg/dL (0.72-1.25); EST GLOMERULAR FILTRATION RATE > 60 ML/MIN (60-); GLUCOSE 84 mg/dL (74-118); POTASSIUM 4.6 mmol/L (3.5-5.1); SODIUM 138 mmol/L (136-145)
[2020-07-13] MEDS: ONDANSETRON HCL INJ 2MG/ML 2ML 2 MG/ML VIAL IV PRN (09:35)
[2020-07-13] MEDS ORDERED: LIDOCAINE HCL 2% LOCAL INJ 5 ML SDV VIAL INJ ONE (11:52)
[2020-07-13] MEDS ORDERED: PHENYLEPHRINE HCL 1% 10 MG/ML VIAL ONE (11:52)
[2020-07-13] MEDS ORDERED: ONDANSETRON HCL INJ 2MG/ML 2ML 2 MG/ML VIAL ONE (11:52)
[2020-07-13] MEDS ORDERED: PROPOFOL IV EMULSION 10 MG/ML 20 ML VIAL ONE (11:52)
[2020-07-14] VITALS (9 sets, daily range): BP systolic 115–148; BP diastolic 55–84
[2020-07-14] MEDS: SODIUM CHLORIDE 0.9% 1000ML 1,000 ML IV SCH (00:26)
[2020-07-14] MEDS: HYDROMORPHONE 1MG/1ML INJ IV PRN ×9 (03:32→21:46)
[2020-07-14] MEDS: LISINOPRIL 10 MG TAB PO SCH (08:19)
[2020-07-14] MEDS: ONDANSETRON HCL INJ 2MG/ML 2ML 2 MG/ML VIAL IV PRN ×2 (13:07→21:46)
[2020-07-15] VITALS (8 sets, daily range): BP systolic 121–166; BP diastolic 73–96
[2020-07-15] MEDS: HYDROMORPHONE 1MG/1ML INJ IV PRN ×9 (00:34→23:50)
[2020-07-15 06:47] LABS: BASOPHILS % 0.8 % (0.0-1.0); EOSINOPHILS # (AUTO) 0.2 (0.0-0.4); EOSINOPHILS % 3.5 % (0.0-6.0); HEMATOCRIT 34.5 % (38.2-49.6); HEMOGLOBIN 10.8 g/dL (14.0-18.0); LYMPHOCYTES # (AUTO) 1.3 (1.0-3.2); LYMPHOCYTES % 26.4 % (18.0-39.1); MEAN CORPUSCULAR HEMOGLOBIN 26.3 pg (28-32); MEAN CORPUSCULAR HGB CONC 31.3 g/dL (31-35); MEAN CORPUSCULAR VOLUME 84.1 fL (81-99); MONOCYTES # (AUTO) 0.5 (0.2-0.8); MONOCYTES % 11.1 % (4.4-11.3); NEUTROPHILS # (AUTO) 2.8 (2.1-6.9); PLATELET COUNT 358 x10e3/uL (140-360); RED CELL DISTRIBUTION WIDTH 15.5 % (11.7-14.4)
[2020-07-15 07:22] LABS: ANION GAP 9.1 mmol/L (8-16); BLOOD UREA NITROGEN 20 mg/dL (7-26); BUN/CREATININE RATIO 24 (6-25); CALCIUM 8.9 mg/dL (8.4-10.2); CARBON DIOXIDE 27 mmol/L (22-29); CHLORIDE 106 mmol/L (98-107); CREATININE, SERUM 0.82 mg/dL (0.72-1.25); EST GLOMERULAR FILTRATION RATE > 60 ML/MIN (60-); GLUCOSE 88 mg/dL (74-118); POTASSIUM 4.1 mmol/L (3.5-5.1); SODIUM 138 mmol/L (136-145)
[2020-07-15] MEDS: LISINOPRIL 10 MG TAB PO SCH (09:41)
[2020-07-16] MEDS: HYDROMORPHONE 1MG/1ML INJ IV PRN ×9 (01:50→22:29)
[2020-07-16 04:58] VITALS: BP 156/83
[2020-07-16 06:31] LABS: BASOPHILS % 0.6 % (0.0-1.0); EOSINOPHILS # (AUTO) 0.2 (0.0-0.4); EOSINOPHILS % 3.7 % (0.0-6.0); HEMATOCRIT 35.7 % (38.2-49.6); HEMOGLOBIN 11.3 g/dL (14.0-18.0); LYMPHOCYTES # (AUTO) 1.4 (1.0-3.2); LYMPHOCYTES % 26.5 % (18.0-39.1); MEAN CORPUSCULAR HEMOGLOBIN 26.2 pg (28-32); MEAN CORPUSCULAR HGB CONC 31.7 g/dL (31-35); MEAN CORPUSCULAR VOLUME 82.6 fL (81-99); MONOCYTES # (AUTO) 0.6 (0.2-0.8); MONOCYTES % 11.4 % (4.4-11.3); NEUTROPHILS # (AUTO) 3.1 (2.1-6.9); NEUTROPHILS % 57.6 % (38.7-80.0); PLATELET COUNT 368 x10e3/uL (140-360); RED BLOOD COUNT 4.32 x10e6/uL (4.3-5.7); RED CELL DISTRIBUTION WIDTH 15.4 % (11.7-14.4)
[2020-07-16 06:58] LABS: BLOOD UREA NITROGEN 22 mg/dL (7-26); BUN/CREATININE RATIO 26 (6-25); CARBON DIOXIDE 28 mmol/L (22-29); CHLORIDE 103 mmol/L (98-107); CREATININE, SERUM 0.84 mg/dL (0.72-1.25); EST GLOMERULAR FILTRATION RATE > 60 ML/MIN (60-); GLUCOSE 89 mg/dL (74-118); SODIUM 137 mmol/L (136-145)
[2020-07-16 07:27] VITALS: BP 128/80
[2020-07-16] MEDS ORDERED: ROPIVACAINE 246.25 MG, EPINEPHRINE HCL 1:1000 1ML 0.5 MG, CLONIDINE HCL 0.08 MG, KETORO... INJ ONE ×5 (07:30)
[2020-07-16 07:47] VITALS: BP 128/80
[2020-07-16] MEDS: LISINOPRIL 10 MG TAB PO SCH (07:52)
[2020-07-16] MEDS ORDERED: DEXAMETHASONE SOD PHOS 10 MG/1 ML VIAL ONE (08:09)
[2020-07-16] MEDS ORDERED: CELECOXIB 200 MG CAP ONE (08:09)
[2020-07-16] MEDS ORDERED: GABAPENTIN 300 MG CAP ONE (08:09)
[2020-07-16] MEDS ORDERED: MORPHINE SULFATE/PF 1 MG/1 ML 10ML VIAL ONE (09:44)
[2020-07-16] MEDS ORDERED: VANCOMYCIN HCL 1,000 MG ONE (09:47)
[2020-07-16] MEDS ORDERED: SODIUM CHLORIDE 0.9% 500ML 500 ML ONE (09:48)
[2020-07-16] MEDS ORDERED: TRANEXAMIC ACID 1,000 MG/10 ML ML ONE (09:48)
[2020-07-16] MEDS ORDERED: CEFAZOLIN SOD 1 GM/NS 50ML 50 ML IV ONE ×2 (09:52→10:00)
[2020-07-16] MEDS ORDERED: BUPIVACAINE 7.5MG/ML /DEXTROSE 82.5MG/ML 2 ML AMP INJ ONE (10:40)
[2020-07-16] MEDS ORDERED: DIPHENHYDRAMINE HCL INJ 50 MG/ML VIAL IV PRN (12:00)
[2020-07-16] MEDS ORDERED: ONDANSETRON HCL INJ 2MG/ML 2ML 2 MG/ML VIAL IV PRN (12:00)
[2020-07-16] MEDS ORDERED: HYDROCODONE/APAP 5MG-325MG TAB PO PRN (12:00)
[2020-07-16] MEDS ORDERED: KETOROLAC TROMETHAMINE 30 MG/ML VIAL IV PRN (12:00)
[2020-07-16] MEDS ORDERED: DOCUSATE SODIUM 100 MG CAP PO PRN (12:00)
[2020-07-16] MEDS ORDERED: ACETAMINOPHEN 650 MG SUPP PR PRN (12:00)
[2020-07-16] MEDS: SODIUM CHLORIDE 0.9% 1000ML 1,000 ML IV SCH ×2 (12:00→21:39)
[2020-07-16] MEDS: CEFAZOLIN SOD 1 GM/NS 50ML 50 ML IV SCH ×3 (14:00→21:39)
[2020-07-16] MEDS: ASPIRIN 325 MG TAB PO SCH (16:57)
[2020-07-16] MEDS: CELECOXIB 100 MG CAP PO SCH (16:57)
[2020-07-16] MEDS ORDERED: FENTANYL CITRATE/PF 100MCG/2 ML INJ ONE (17:41)
[2020-07-16] MEDS ORDERED: MIDAZOLAM HCL 2 MG/2 ML VIAL ONE (17:41)
[2020-07-16 20:00] VITALS: BP_SYST 113; BP_SYST 114; BP_DIAS 60; BP_DIAS 75
[2020-07-16] MEDS ORDERED: ZOLPIDEM TARTRATE 5 MG TAB PO PRN (21:00)
[2020-07-17] VITALS (7 sets, daily range): BP systolic 114–137; BP diastolic 66–81
[2020-07-17] MEDS: HYDROMORPHONE 1MG/1ML INJ IV PRN ×4 (00:30→10:04)
[2020-07-17] MEDS: CEFAZOLIN SOD 1 GM/NS 50ML 50 ML IV SCH (05:03)
[2020-07-17 06:13] LABS: HEMATOCRIT 31.9 % (38.2-49.6)
[2020-07-17] MEDS: CELECOXIB 100 MG CAP PO SCH (07:54)
[2020-07-17] MEDS: SODIUM CHLORIDE 0.9% 1000ML 1,000 ML IV SCH ×2 (07:54→18:00)
[2020-07-17] MEDS: ASPIRIN 325 MG TAB PO SCH ×2 (07:54→17:20)
[2020-07-17] MEDS ORDERED: LISINOPRIL 10 MG TAB PO SCH (09:00)
[2020-07-17] MEDS ORDERED: ACETAMINOPHEN 1000 MG/100 ML IV PRN (12:00)
[2020-07-17] MEDS: HYDROCODONE/APAP 7.5MG-325MG 1 EA TAB PO PRN ×2 (12:17→17:20)
[2020-07-17] MEDS ORDERED: ONDANSETRON HCL 4 MG ORAL DISINTEGRATING TAB PO PRN (13:00)
[2020-07-17] MEDS ORDERED: CELECOXIB 200 MG CAP PO SCH (17:00)
[2020-07-17] MEDS ORDERED: NORCO 10-325 T1 EACH PO (18:05)
== END 2020-07-17 19:38 | disposition home health service (06) | DRG 470 ==
LOC: ER 14:33 → ERHOLD 16:33 → MED/SURG3 18:31 → OBSVTOIN 07-13 12:23 → MED/SURG3 07-15 12:35 → MED/SURG 07-16 15:24
PROVIDERS: ADMIT Internal Medicine; ATTEND Internal Medicine
PROC: 0SRB04Z Replacement of Left Hip Joint with Ceramic on Polyethylene Synthetic Substitute, Open Approach (ICD-10-PCS; principal; 2020-07-16 10:30)
DX: M16.12 Unilateral primary osteoarthritis, left hip (principal); E66.9 Obesity, unspecified; M06.9 Rheumatoid arthritis, unspecified; Z68.32 Body mass index [BMI] 32.0-32.9, adult; Z85.828 Personal history of other malignant neoplasm of skin; Z88.5 Allergy status to narcotic agent; Z88.0 Allergy status to penicillin; B35.1 Tinea unguium; M21.612 Bunion of left foot; M21.611 Bunion of right foot; I11.9 Hypertensive heart disease without heart failure; Z20.828 Contact with and (suspected) exposure to other viral communicable diseases
CPT/HCPCS: 36415; 72170; 80048; 80053; 85014; 85018; 85025; 86850; 86900; 96361; 97139; 99284; G0378; J0171; J0690; J1100; J1170; J1885; J2001; J2250; J2370; J2405; J2795; J3010; J3370; J7030; J7040; U0002

== ENCOUNTER 2020-09-06 15:03 | Inpatient (IN) | payer MEDICARE ==
[2020-09-04 12:03] LABS: BASOPHILS # (AUTO) 0.1 (0.0-0.1); BASOPHILS % 0.9 % (0.0-1.0); EOSINOPHILS # (AUTO) 0.2 (0.0-0.4); HEMATOCRIT 35.6 % (38.2-49.6); LYMPHOCYTES # (AUTO) 1.7 (1.0-3.2); MEAN CORPUSCULAR HEMOGLOBIN 24.9 pg (28-32); MEAN CORPUSCULAR HGB CONC 30.9 g/dL (31-35); MEAN CORPUSCULAR VOLUME 80.7 fL (81-99); MONOCYTES # (AUTO) 0.6 (0.2-0.8); MONOCYTES % 10.4 % (4.4-11.3); NEUTROPHILS # (AUTO) 2.8 (2.1-6.9); PLATELET COUNT 685 x10e3/uL (140-360); RED BLOOD COUNT 4.41 x10e6/uL (4.3-5.7); RED CELL DISTRIBUTION WIDTH 17.3 % (11.7-14.4)
[~2020-09-06] VITALS: Ht 188 cm; Wt 120.4 kg
[~2020-09-06 15:03] MED LIST changes: +ACETAMINOPHEN 650 MG SUPP PR PRN; +ANTIBIOTIC PO; +DIPHENHYDRAMINE HCL INJ 50 MG/ML VIAL IV PRN; +DOCUSATE SODIUM 100 MG CAP PO PRN; +EPHEDRINE SULFATE INJ 50 MG/ML VIAL ONE; +FENTANYL CITRATE/PF 100MCG/2 ML INJ ONE; +GLYCOPYRROLATE INJ 0.2 MG/ML VIAL ONE; +KETOROLAC TROMETHAMINE 30 MG/ML VIAL IV PRN; +LIDOCAINE HCL 2% LOCAL INJ 5 ML SDV VIAL INJ ONE; +MOBIC15 MG PO; +NAPROXEN250 MG PO; +NEOSTIGMINE 1 MG/ML 10ML VIAL ONE; +NORCO 10-325 T1 EACH PO; +ONDANSETRON HCL INJ 2MG/ML 2ML 2 MG/ML VIAL ONE; +PHENYLEPHRINE HCL 1% 10 MG/ML VIAL ONE; +PROPOFOL IV EMULSION 10 MG/ML 20 ML VIAL ONE; +ROCURONIUM BROMIDE 10 MG/ML 5ML VIAL IV ONE; +SEVOFLURANE INHAL SOLN 250 ML PEN BTL ONE; +SODIUM CHLORIDE 0.9% 500ML 500 ML ONE; +TRANEXAMIC ACID 1,000 MG/10 ML ML ONE; +ULTRAM50 MG PO; +VANCOMYCIN 1GM/NS 250 ML 250 ML ONE; +VANCOMYCIN HCL 1,000 MG ONE; +VANCOMYCIN HCL 500 MG ONE
[2020-09-06] MEDS ORDERED: HYDROMORPHONE 1MG/1ML INJ ONE ×2 (15:12→15:47)
[2020-09-06] MEDS ORDERED: ACETAMINOPHEN 1000 MG/100 ML 100 ML IV ONE (15:28)
[2020-09-06] MEDS ORDERED: HYDROMORPHONE 1MG/1ML INJ IV STA (16:14)
[2020-09-06 16:46] VITALS: BP 130/82
[2020-09-06] MEDS ORDERED: ACETAMINOPHEN 1000 MG/100 ML IV PRN (17:00)
[2020-09-06] MEDS: SODIUM CHLORIDE 0.9% 1000ML 1,000 ML IV SCH (17:26)
[2020-09-06] MEDS: CELECOXIB 100 MG CAP PO SCH (17:27)
[2020-09-06] MEDS: ASPIRIN 325 MG TAB PO SCH (17:27)
[2020-09-06 18:15] LABS: ANION GAP 12.6 mmol/L (8-16); BLOOD UREA NITROGEN 18 mg/dL (7-26); BUN/CREATININE RATIO 19 (6-25); CALCIUM 8.1 mg/dL (8.4-10.2); CARBON DIOXIDE 24 mmol/L (22-29); CHLORIDE 104 mmol/L (98-107); CREATININE, SERUM 0.93 mg/dL (0.72-1.25); EST GLOMERULAR FILTRATION RATE > 60 ML/MIN (60-); GLUCOSE 114 mg/dL (74-118); POTASSIUM 4.6 mmol/L (3.5-5.1); SODIUM 136 mmol/L (136-145)
[2020-09-06 18:19] VITALS: BP 130/82
[2020-09-06 19:49] VITALS: BP 106/66
[2020-09-06 19:50] VITALS: BP 106/66
[2020-09-06] MEDS: HYDROMORPHONE 1MG/1ML INJ IV PRN ×2 (20:44→23:45)
[2020-09-06] MEDS ORDERED: ZOLPIDEM TARTRATE 5 MG TAB PO PRN (21:00)
[2020-09-06] MEDS: ONDANSETRON HCL INJ 2MG/ML 2ML 2 MG/ML VIAL IV PRN (23:45)
[2020-09-07] VITALS (7 sets, daily range): BP systolic 108–145; BP diastolic 61–94
[2020-09-07] MEDS: VANCOMYCIN 1GM/NS 250 ML 250 ML IV SCH ×2 (00:21→11:55)
[2020-09-07] MEDS: SODIUM CHLORIDE 0.9% 1000ML 1,000 ML IV SCH (00:45)
[2020-09-07] MEDS: HYDROMORPHONE 1MG/1ML INJ IV PRN ×7 (02:51→21:35)
[2020-09-07 05:45] LABS: BASOPHILS % 0.5 % (0.0-1.0); EOSINOPHILS # (AUTO) 0.1 (0.0-0.4); EOSINOPHILS % 1.4 % (0.0-6.0); HEMATOCRIT 25.8 % (38.2-49.6); LYMPHOCYTES # (AUTO) 1.3 (1.0-3.2); LYMPHOCYTES % 21.3 % (18.0-39.1); MEAN CORPUSCULAR HEMOGLOBIN 25.6 pg (28-32); MEAN CORPUSCULAR HGB CONC 30.2 g/dL (31-35); MEAN CORPUSCULAR VOLUME 84.6 fL (81-99); MONOCYTES # (AUTO) 0.5 (0.2-0.8); MONOCYTES % 8.4 % (4.4-11.3); NEUTROPHILS % 68.1 % (38.7-80.0); PLATELET COUNT 457 x10e3/uL (140-360); RED BLOOD COUNT 3.05 x10e6/uL (4.3-5.7)
[2020-09-07 05:47] LABS: CALCIUM IONIZED 1.2 mmol/L (1.09-1.30)
[2020-09-07 06:06] LABS: HEMOGLOBIN 7.8 g/dL (14.0-18.0)
[2020-09-07 06:15] LABS: ALANINE AMINOTRANSFERASE 16 IU/L (0-55); ALBUMIN 2.5 g/dL (3.5-5.0); ALBUMIN/GLOBULIN RATIO 0.8 (0.8-2.0); ALKALINE PHOSPHATASE 117 IU/L (40-150); ANION GAP 12.3 mmol/L (8-16); BLOOD UREA NITROGEN 21 mg/dL (7-26); BUN/CREATININE RATIO 20 (6-25); CARBON DIOXIDE 25 mmol/L (22-29); CHLORIDE 104 mmol/L (98-107); CREATININE, SERUM 1.05 mg/dL (0.72-1.25); EST GLOMERULAR FILTRATION RATE > 60 ML/MIN (60-); GLUCOSE 99 mg/dL (74-118); MAGNESIUM 1.9 MG/DL (1.3-2.1); POTASSIUM 4.3 mmol/L (3.5-5.1); SODIUM 137 mmol/L (136-145)
[2020-09-07] MEDS: CELECOXIB 100 MG CAP PO SCH ×2 (08:53→17:05)
[2020-09-07] MEDS: ASPIRIN 325 MG TAB PO SCH ×2 (08:53→17:05)
[2020-09-07] MEDS: ONDANSETRON HCL INJ 2MG/ML 2ML 2 MG/ML VIAL IV PRN (21:35)
[2020-09-08] VITALS (9 sets, daily range): BP systolic 113–145; BP diastolic 50–80
[2020-09-08] MEDS: HYDROMORPHONE 1MG/1ML INJ IV PRN ×2 (00:35→08:21)
[2020-09-08] MEDS: SODIUM CHLORIDE 0.9% 1000ML 1,000 ML IV SCH ×2 (03:44→14:19)
[2020-09-08 06:24] LABS: BASOPHILS % 0.9 % (0.0-1.0); EOSINOPHILS # (AUTO) 0.1 (0.0-0.4); EOSINOPHILS % 2.5 % (0.0-6.0); HEMATOCRIT 24.1 % (38.2-49.6); HEMOGLOBIN 7.4 g/dL (14.0-18.0); LYMPHOCYTES # (AUTO) 1.1 (1.0-3.2); LYMPHOCYTES % 24.7 % (18.0-39.1); MEAN CORPUSCULAR HEMOGLOBIN 26.1 pg (28-32); MEAN CORPUSCULAR HGB CONC 30.7 g/dL (31-35); MEAN CORPUSCULAR VOLUME 85.2 fL (81-99); MONOCYTES # (AUTO) 0.5 (0.2-0.8); MONOCYTES % 10.9 % (4.4-11.3); NEUTROPHILS # (AUTO) 2.7 (2.1-6.9); NEUTROPHILS % 60.5 % (38.7-80.0); PLATELET COUNT 428 x10e3/uL (140-360); RED BLOOD COUNT 2.83 x10e6/uL (4.3-5.7); RED CELL DISTRIBUTION WIDTH 17.9 % (11.7-14.4)
[2020-09-08 07:09] LABS: ANION GAP 12.4 mmol/L (8-16); BLOOD UREA NITROGEN 14 mg/dL (7-26); BUN/CREATININE RATIO 17 (6-25); CALCIUM 7.9 mg/dL (8.4-10.2); CARBON DIOXIDE 25 mmol/L (22-29); CHLORIDE 105 mmol/L (98-107); CREATININE, SERUM 0.84 mg/dL (0.72-1.25); EST GLOMERULAR FILTRATION RATE > 60 ML/MIN (60-); GLUCOSE 90 mg/dL (74-118); POTASSIUM 4.4 mmol/L (3.5-5.1); SODIUM 138 mmol/L (136-145)
[2020-09-08] MEDS: CELECOXIB 100 MG CAP PO SCH ×2 (08:20→16:26)
[2020-09-08] MEDS: ASPIRIN 325 MG TAB PO SCH ×2 (08:20→16:26)
[2020-09-08] MEDS: ONDANSETRON HCL INJ 2MG/ML 2ML 2 MG/ML VIAL IV PRN ×2 (08:21→22:41)
[2020-09-08] MEDS ORDERED: SODIUM CHLORIDE 0.9% 250ML 250 ML IV ONE (11:15)
[2020-09-08] MEDS: HYDROCODONE/APAP 7.5MG-325MG 1 EA TAB PO PRN ×3 (12:09→22:31)
[2020-09-08] MEDS: VANCOMYCIN 1GM/NS 250 ML 250 ML IV SCH (15:08)
[2020-09-08] MEDS ORDERED: SODIUM CHLORIDE 0.9% 500ML 500 ML ONE (18:10)
[2020-09-09] VITALS (7 sets, daily range): BP systolic 111–152; BP diastolic 60–87
[2020-09-09] MEDS: HYDROCODONE/APAP 5MG-325MG TAB PO PRN ×3 (01:33→17:10)
[2020-09-09] MEDS: VANCOMYCIN 1GM/NS 250 ML 250 ML IV SCH ×2 (03:08→15:00)
[2020-09-09] MEDS: HYDROCODONE/APAP 7.5MG-325MG 1 EA TAB PO PRN ×3 (03:08→20:15)
[2020-09-09] MEDS: SODIUM CHLORIDE 0.9% 1000ML 1,000 ML IV SCH (03:08)
[2020-09-09] MEDS: ASPIRIN 325 MG TAB PO SCH ×2 (09:26→17:00)
[2020-09-09] MEDS: CELECOXIB 100 MG CAP PO SCH ×2 (09:26→17:00)
[2020-09-09 13:04] LABS: HEMATOCRIT 27.6 % (38.2-49.6); HEMOGLOBIN 8.2 g/dL (14.0-18.0)
[2020-09-10] VITALS: BP 127/80
[2020-09-10] MEDS: HYDROCODONE/APAP 5MG-325MG TAB PO PRN (00:15)
[2020-09-10] MEDS: VANCOMYCIN 1GM/NS 250 ML 250 ML IV SCH ×2 (03:30→15:47)
[2020-09-10] MEDS: HYDROCODONE/APAP 7.5MG-325MG 1 EA TAB PO PRN ×3 (03:35→16:19)
[2020-09-10 04:00] VITALS: BP_SYST 136
[2020-09-10 07:26] VITALS: BP 128/70
[2020-09-10 07:43] VITALS: BP 128/70
[2020-09-10] MEDS: CELECOXIB 100 MG CAP PO SCH ×2 (09:20→17:05)
[2020-09-10] MEDS: ASPIRIN 325 MG TAB PO SCH ×2 (09:20→17:05)
[2020-09-10 11:04] VITALS: BP 143/82
[2020-09-10 14:38] VITALS: BP 136/80
[2020-09-10] MEDS ORDERED: ONDANSETRON HCL 4 MG ORAL DISINTEGRATING TAB PO PRN (19:00)
[2020-09-11] MEDS ORDERED: CELECOXIB 200 MG CAP PO SCH (09:00)
== END 2020-09-10 19:18 | disposition home health service (06) | DRG 857 ==
LOC: OR 15:03 → PACU V 15:05 → MED/SURG 16:11
PROVIDERS: ADMIT Specialist; ATTEND Specialist
PROC: 0JBM0ZZ Excision of Left Upper Leg Subcutaneous Tissue and Fascia, Open Approach (ICD-10-PCS; 2020-09-06)
PROC: 02HV33Z Insertion of Infusion Device into Superior Vena Cava, Percutaneous Approach (ICD-10-PCS; 2020-09-06)
PROC: 30243N1 Transfusion of Nonautologous Red Blood Cells into Central Vein, Percutaneous Approach (ICD-10-PCS; 2020-09-06)
PROC: 3E0102A Introduction of Anti-Infective Envelope into Subcutaneous Tissue, Open Approach (ICD-10-PCS; principal; 2020-09-06 13:30)
DX: T81.42XA Infection following a procedure, deep incisional surgical site, initial encounter (principal); D62 Acute posthemorrhagic anemia; Z96.642 Presence of left artificial hip joint; M16.12 Unilateral primary osteoarthritis, left hip; M06.9 Rheumatoid arthritis, unspecified; B95.62 Methicillin resistant Staphylococcus aureus infection as the cause of diseases classified elsewhere; Z20.822 Contact with and (suspected) exposure to COVID-19; E66.9 Obesity, unspecified; Z68.34 Body mass index [BMI] 34.0-34.9, adult; G89.18 Other acute postprocedural pain
CPT/HCPCS: 36415; 36569; 71045; 71046; 80048; 80053; 80202; 83735; 85014; 85018; 85025; 86850; 86900; 86920; 87071; 87075; 87205; 97139; J1170; J1885; J2001; J2370; J2405; J2710; J3010; J3370; J7030; J7040; P9016; U0002

== ENCOUNTER 2020-12-01 15:35 | Inpatient (IN) | payer MEDICARE ==
[~2020-12-01] VITALS: Ht 188 cm; Wt 120.2 kg
[~2020-12-01 15:35] MED LIST changes: -ACETAMINOPHEN 650 MG SUPP PR PRN; -DIPHENHYDRAMINE HCL INJ 50 MG/ML VIAL IV PRN; -DOCUSATE SODIUM 100 MG CAP PO PRN; -EPHEDRINE SULFATE INJ 50 MG/ML VIAL ONE; -FENTANYL CITRATE/PF 100MCG/2 ML INJ ONE; -GLYCOPYRROLATE INJ 0.2 MG/ML VIAL ONE; -KETOROLAC TROMETHAMINE 30 MG/ML VIAL IV PRN; -LIDOCAINE HCL 2% LOCAL INJ 5 ML SDV VIAL INJ ONE; -NEOSTIGMINE 1 MG/ML 10ML VIAL ONE; -ONDANSETRON HCL INJ 2MG/ML 2ML 2 MG/ML VIAL ONE; -PHENYLEPHRINE HCL 1% 10 MG/ML VIAL ONE; -PROPOFOL IV EMULSION 10 MG/ML 20 ML VIAL ONE; -ROCURONIUM BROMIDE 10 MG/ML 5ML VIAL IV ONE; -SEVOFLURANE INHAL SOLN 250 ML PEN BTL ONE; -SODIUM CHLORIDE 0.9% 500ML 500 ML ONE; -TRANEXAMIC ACID 1,000 MG/10 ML ML ONE; -VANCOMYCIN 1GM/NS 250 ML 250 ML ONE; -VANCOMYCIN HCL 1,000 MG ONE; -VANCOMYCIN HCL 500 MG ONE
[2020-12-01] MEDS ORDERED: ASPIRIN 81 MG CHEW TAB PO ONE (16:00)
[2020-12-01 16:11] LABS: BASOPHILS % 0.5 % (0.0-1.0); EOSINOPHILS % 0.3 % (0.0-6.0); HEMATOCRIT 35.5 % (38.2-49.6); HEMOGLOBIN 11.1 g/dL (14.0-18.0); LYMPHOCYTES # (AUTO) 1.1 (1.0-3.2); LYMPHOCYTES % 12.6 % (18.0-39.1); MEAN CORPUSCULAR HEMOGLOBIN 22.7 pg (28-32); MEAN CORPUSCULAR HGB CONC 31.3 g/dL (31-35); MEAN CORPUSCULAR VOLUME 72.6 fL (81-99); MONOCYTES # (AUTO) 0.8 (0.2-0.8); MONOCYTES % 9.5 % (4.4-11.3); NEUTROPHILS # (AUTO) 6.8 (2.1-6.9); NEUTROPHILS % 76.8 % (38.7-80.0); PLATELET COUNT 466 x10e3/uL (140-360); RED BLOOD COUNT 4.89 x10e6/uL (4.3-5.7); RED CELL DISTRIBUTION WIDTH 17.3 % (11.7-14.4)
[2020-12-01] MEDS ORDERED: HYDROMORPHONE 1MG/1ML INJ IV STA (16:19)
[2020-12-01] MEDS ORDERED: ONDANSETRON HCL INJ 2MG/ML 2ML 2 MG/ML VIAL IV STA (16:19)
[2020-12-01] MEDS ORDERED: SODIUM CHLORIDE 0.9% 1000ML 1,000 ML IV STA (16:19)
[2020-12-01] MEDS ORDERED: PANTOPRAZOLE 40 MG 10ML VIAL IV STA (16:19)
[2020-12-01 16:23] LABS: INR 1.03; PROTHROMBIN TIME 14.1 seconds (11.9-14.5)
[2020-12-01 16:24] LABS: PARTIAL THROMBOPLASTIN TIME 43.5 seconds (23.8-35.5)
[2020-12-01] MEDS ORDERED: ONDANSETRON HCL INJ 2MG/ML 2ML 2 MG/ML VIAL ONE (16:34)
[2020-12-01 16:35] LABS: ALANINE AMINOTRANSFERASE 21 IU/L (0-55); ALBUMIN 4.2 g/dL (3.5-5.0); ALKALINE PHOSPHATASE 160 IU/L (40-150); ANION GAP 17.1 mmol/L (8-16); BLOOD UREA NITROGEN 29 mg/dL (7-26); BUN/CREATININE RATIO 27 (6-25); CALCIUM 9.7 mg/dL (8.4-10.2); CARBON DIOXIDE 22 mmol/L (22-29); CHLORIDE 101 mmol/L (98-107); CREATINE KINASE 209 IU/L (30-200); CREATININE, SERUM 1.07 mg/dL (0.72-1.25); EST GLOMERULAR FILTRATION RATE > 60 ML/MIN (60-); GLUCOSE 85 mg/dL (74-118); POTASSIUM 4.1 mmol/L (3.5-5.1); SODIUM 136 mmol/L (136-145)
[2020-12-01] MEDS ORDERED: MORPHINE SULFATE INJ 2 MG/ML SYR IV PRN (17:45)
[2020-12-01] MEDS ORDERED: HYDROMORPHONE 1MG/1ML INJ IV PRN (18:15)
[2020-12-01] MEDS: SODIUM CHLORIDE 0.9% 1000ML 1,000 ML IV SCH ×2 (18:40→22:42)
[2020-12-01] MEDS: ONDANSETRON HCL INJ 2MG/ML 2ML 2 MG/ML VIAL IV PRN ×2 (18:47→22:42)
[2020-12-01 20:53] VITALS: BP 144/69
[2020-12-01] MEDS: HYDROMORPHONE 1MG/1ML INJ IV PRN (22:00)
[2020-12-01 23:16] LABS: CREATINE KINASE MB 0.8 ng/mL (0-5.0)
[2020-12-01 23:55] VITALS: BP 133/79
[2020-12-02] VITALS (9 sets, daily range): BP systolic 124–143; BP diastolic 71–79
[2020-12-02] MEDS: HYDROMORPHONE 1MG/1ML INJ IV PRN ×7 (02:00→21:55)
[2020-12-02 03:57] LABS: CLARITY,URINE CLEAR (CLEAR); COLOR,URINE YELLOW (YELLOW); LEUKOCYTE ESTERASE ,URINE NEGATIVE (NEGATIVE); NITRITE,URINE NEGATIVE (NEGATIVE); PROTEIN,URINE DIPSTICK NEGATIVE (NEGATIVE)
[2020-12-02 03:58] LABS: BACTERIA,URINE RARE /HPF; EPITHELIAL CELLS,URINE RARE /LPF; KETONES,URINE NEGATIVE (NEGATIVE); URINE UROBILINOGEN 0.2 mg/dL (0.2 - 1); WBC,URINE (MAN) 0-5 /HPF (0-5)
[2020-12-02 05:49] LABS: BASOPHILS % 0.7 % (0.0-1.0); EOSINOPHILS # (AUTO) 0.1 (0.0-0.4); EOSINOPHILS % 1.3 % (0.0-6.0); HEMATOCRIT 29.2 % (38.2-49.6); HEMOGLOBIN 8.9 g/dL (14.0-18.0); LYMPHOCYTES % 18.9 % (18.0-39.1); MEAN CORPUSCULAR HEMOGLOBIN 22.3 pg (28-32); MEAN CORPUSCULAR HGB CONC 30.5 g/dL (31-35); MEAN CORPUSCULAR VOLUME 73.2 fL (81-99); MONOCYTES # (AUTO) 0.7 (0.2-0.8); MONOCYTES % 13.1 % (4.4-11.3); NEUTROPHILS # (AUTO) 3.6 (2.1-6.9); NEUTROPHILS % 65.6 % (38.7-80.0); PLATELET COUNT 349 x10e3/uL (140-360); RED BLOOD COUNT 3.99 x10e6/uL (4.3-5.7); RED CELL DISTRIBUTION WIDTH 17.2 % (11.7-14.4)
[2020-12-02 06:31] LABS: ALANINE AMINOTRANSFERASE 16 IU/L (0-55); ALBUMIN 3.3 g/dL (3.5-5.0); ALKALINE PHOSPHATASE 118 IU/L (40-150); ANION GAP 13.8 mmol/L (8-16); BLOOD UREA NITROGEN 21 mg/dL (7-26); BUN/CREATININE RATIO 24 (6-25); CALCIUM 8.5 mg/dL (8.4-10.2); CARBON DIOXIDE 22 mmol/L (22-29); CHLORIDE 105 mmol/L (98-107); CREATININE, SERUM 0.89 mg/dL (0.72-1.25); EST GLOMERULAR FILTRATION RATE > 60 ML/MIN (60-); GLUCOSE 88 mg/dL (74-118); POTASSIUM 3.8 mmol/L (3.5-5.1); SODIUM 137 mmol/L (136-145)
[2020-12-02 08:14] LABS: CREATINE KINASE 113 IU/L (30-200)
[2020-12-02 10:35] LABS: CREATINE KINASE MB 0.6 ng/mL (0-5.0)
[2020-12-02] MEDS ORDERED: ACETAMINOPHEN 325 MG TAB PO PRN (11:00)
[2020-12-02] MEDS ORDERED: MELOXICAM 7.5 MG TAB PO PRN (11:15)
[2020-12-02] MEDS: SODIUM CHLORIDE 0.9% 1000ML 1,000 ML IV SCH ×3 (13:01→22:05)
[2020-12-03] VITALS (7 sets, daily range): BP systolic 117–156; BP diastolic 73–84
[2020-12-03] MEDS: HYDROMORPHONE 1MG/1ML INJ IV PRN ×3 (00:55→06:59)
[2020-12-03] MEDS: SODIUM CHLORIDE 0.9% 1000ML 1,000 ML IV SCH ×4 (09:45→22:30)
[2020-12-03] MEDS ORDERED: ROPIVACAINE 246.25 MG, EPINEPHRINE HCL 1:1000 1ML 0.5 MG, CLONIDINE HCL 0.08 MG, KETORO... INJ ONE ×5 (10:00)
[2020-12-03] MEDS ORDERED: CELECOXIB 200 MG CAP ONE (10:32)
[2020-12-03] MEDS ORDERED: GABAPENTIN 300 MG CAP ONE (10:32)
[2020-12-03] MEDS ORDERED: DEXAMETHASONE SOD PHOS 10 MG/1 ML VIAL ONE (10:33)
[2020-12-03] MEDS ORDERED: CEFAZOLIN SOD 1 GM/NS 50ML 100 ML IV ONE (10:37)
[2020-12-03] MEDS ORDERED: VANCOMYCIN HCL 1,000 MG ONE (10:55)
[2020-12-03] MEDS ORDERED: SODIUM CHLORIDE 0.9% 500ML 500 ML ONE (10:55)
[2020-12-03] MEDS ORDERED: TRANEXAMIC ACID 1,000 MG/10 ML ML ONE (10:55)
[2020-12-03] MEDS ORDERED: BUPIVACAINE 7.5MG/ML /DEXTROSE 82.5MG/ML 2 ML AMP INJ ONE (11:06)
[2020-12-03] MEDS ORDERED: DIPHENHYDRAMINE HCL INJ 50 MG/ML VIAL IV PRN (12:30)
[2020-12-03] MEDS ORDERED: HYDROCODONE/APAP 5MG-325MG TAB PO PRN (12:30)
[2020-12-03] MEDS ORDERED: ACETAMINOPHEN 650 MG SUPP PR PRN (12:30)
[2020-12-03] MEDS ORDERED: DOCUSATE SODIUM 100 MG CAP PO PRN (12:30)
[2020-12-03] MEDS ORDERED: ONDANSETRON HCL INJ 2MG/ML 2ML 2 MG/ML VIAL IV PRN (12:30)
[2020-12-03] MEDS ORDERED: ZOLPIDEM TARTRATE 5 MG TAB PO PRN (12:30)
[2020-12-03] MEDS ORDERED: MEPERIDINE HCL INJ 25 MG/ML VIAL ONE (12:54)
[2020-12-03] MEDS ORDERED: FENTANYL CITRATE/PF 100MCG/2 ML INJ ONE ×2 (13:04→14:00)
[2020-12-03] MEDS ORDERED: MIDAZOLAM HCL 2 MG/2 ML VIAL ONE (14:00)
[2020-12-03] MEDS ORDERED: PROPOFOL IV EMULSION 10 MG/ML 20 ML VIAL ONE (14:03)
[2020-12-03] MEDS ORDERED: NEOSTIGMINE 1 MG/ML 10ML VIAL ONE (14:03)
[2020-12-03] MEDS ORDERED: LIDOCAINE HCL 2% LOCAL INJ 5 ML SDV VIAL INJ ONE (14:03)
[2020-12-03] MEDS ORDERED: ONDANSETRON HCL INJ 2MG/ML 2ML 2 MG/ML VIAL ONE (14:03)
[2020-12-03] MEDS ORDERED: ROCURONIUM BROMIDE 10 MG/ML 5ML VIAL IV ONE (14:03)
[2020-12-03] MEDS ORDERED: POVIDONE IODINE 0.05% 0.05 % ML PO ONE (14:03)
[2020-12-03] MEDS ORDERED: SEVOFLURANE INHAL SOLN 250 ML PEN BTL ONE (14:03)
[2020-12-03] MEDS ORDERED: GLYCOPYRROLATE INJ 0.2 MG/ML VIAL ONE (14:03)
[2020-12-03] MEDS: HYDROCODONE/APAP 7.5MG-325MG 1 EA TAB PO PRN (14:30)
[2020-12-03] MEDS: KETOROLAC TROMETHAMINE 30 MG/ML VIAL IV PRN (16:22)
[2020-12-03] MEDS: ASPIRIN 325 MG TAB PO SCH (16:50)
[2020-12-03] MEDS: CELECOXIB 200 MG CAP PO SCH (16:51)
[2020-12-03] MEDS: CEFAZOLIN SOD 1 GM/NS 50ML 50 ML IV SCH (19:30)
[2020-12-04] VITALS: BP 116/61
[2020-12-04] MEDS: KETOROLAC TROMETHAMINE 30 MG/ML VIAL IV PRN (00:51)
[2020-12-04] MEDS: SODIUM CHLORIDE 0.9% 1000ML 1,000 ML IV SCH ×3 (01:45→10:15)
[2020-12-04] MEDS: HYDROCODONE/APAP 7.5MG-325MG 1 EA TAB PO PRN ×2 (02:27→06:52)
[2020-12-04] MEDS: CEFAZOLIN SOD 1 GM/NS 50ML 50 ML IV SCH ×2 (03:47→11:10)
[2020-12-04 05:16] LABS: BASOPHILS % 0.1 % (0.0-1.0); HEMATOCRIT 29.4 % (38.2-49.6); HEMOGLOBIN 8.8 g/dL (14.0-18.0); LYMPHOCYTES # (AUTO) 0.5 (1.0-3.2); LYMPHOCYTES % 5.5 % (18.0-39.1); MEAN CORPUSCULAR HEMOGLOBIN 22.2 pg (28-32); MEAN CORPUSCULAR HGB CONC 29.9 g/dL (31-35); MEAN CORPUSCULAR VOLUME 74.1 fL (81-99); MONOCYTES # (AUTO) 0.8 (0.2-0.8); MONOCYTES % 8.7 % (4.4-11.3); NEUTROPHILS # (AUTO) 7.9 (2.1-6.9); NEUTROPHILS % 85.3 % (38.7-80.0); PLATELET COUNT 408 x10e3/uL (140-360); RED BLOOD COUNT 3.97 x10e6/uL (4.3-5.7); RED CELL DISTRIBUTION WIDTH 17.2 % (11.7-14.4)
[2020-12-04 06:17] VITALS: BP 132/72
[2020-12-04 06:22] LABS: FERRITIN 69.01 ng/mL (21.81-274.66)
[2020-12-04 06:53] LABS: % IRON SATURATION 3 % (15-50); ANION GAP 12.9 mmol/L (8-16); BLOOD UREA NITROGEN 31 mg/dL (7-26); BUN/CREATININE RATIO 32 (6-25); CALCIUM 8.6 mg/dL (8.4-10.2); CARBON DIOXIDE 24 mmol/L (22-29); CHLORIDE 103 mmol/L (98-107); CREATININE, SERUM 0.96 mg/dL (0.72-1.25); EST GLOMERULAR FILTRATION RATE > 60 ML/MIN (60-); GLUCOSE 112 mg/dL (74-118); IRON 10 ug/dL (65-175); SODIUM 135 mmol/L (136-145); TOTAL IRON BINDING CAPACITY 336 ug/dL (261-478); TRANSFERRIN 240 mg/dL (174-364)
[2020-12-04 06:55] LABS: POTASSIUM 4.9 mmol/L (3.5-5.1)
[2020-12-04 08:00] VITALS: BP 134/78
[2020-12-04 09:02] VITALS: BP 134/78
[2020-12-04] MEDS: ASPIRIN 325 MG TAB PO SCH (09:20)
[2020-12-04] MEDS: CELECOXIB 200 MG CAP PO SCH (09:20)
[2020-12-04] MEDS ORDERED: ONDANSETRON HCL 4 MG ORAL DISINTEGRATING TAB PO PRN (09:45)
[2020-12-04 11:34] VITALS: BP 114/84
[2020-12-04] MEDS ORDERED: ACETAMINOPHEN 1000 MG/100 ML IV PRN (12:30)
[2020-12-04 15:52] VITALS: BP 117/61
== END 2020-12-04 16:15 | disposition home or self-care (01) | DRG 522 ==
LOC: ER 15:43 → ERHOLD 17:38 → MED/SURG 20:51
PROVIDERS: ADMIT Internal Medicine; ATTEND Internal Medicine
PROC: 0SR90JZ Replacement of Right Hip Joint with Synthetic Substitute, Open Approach (ICD-10-PCS; principal; 2020-12-03 13:30)
DX: S72.091A Other fracture of head and neck of right femur, initial encounter for closed fracture (principal); D62 Acute posthemorrhagic anemia; M06.9 Rheumatoid arthritis, unspecified; Z88.5 Allergy status to narcotic agent; Z88.0 Allergy status to penicillin; Z96.642 Presence of left artificial hip joint; D64.9 Anemia, unspecified; E66.9 Obesity, unspecified; Z68.34 Body mass index [BMI] 34.0-34.9, adult; Z20.822 Contact with and (suspected) exposure to COVID-19
CPT/HCPCS: 36415; 71045; 72170; 80048; 80053; 81001; 82550; 82553; 82607; 82728; 82746; 83540; 84466; 84484; 85025; 85610; 85730; 86850; 86900; 87086; 93005; 99284; C1713; C1776; J0171; J0690; J1100; J1170; J1885; J2001; J2175; J2250; J2405; J2710; J2795; J3010; J3370; J7030; J7040; U0002

== ENCOUNTER → 2021-01-29 | Day surgery (SDC) | payer MEDICARE ==
[2021-01-24 14:00] LABS: BASOPHILS % 0.6 % (0.0-1.0); EOSINOPHILS # (AUTO) 0.1 (0.0-0.4); EOSINOPHILS % 1.5 % (0.0-6.0); HEMATOCRIT 32.4 % (38.2-49.6); HEMOGLOBIN 9.6 g/dL (14.0-18.0); LYMPHOCYTES # (AUTO) 1.5 (1.0-3.2); LYMPHOCYTES % 22.7 % (18.0-39.1); MEAN CORPUSCULAR HEMOGLOBIN 21.9 pg (28-32); MEAN CORPUSCULAR HGB CONC 29.6 g/dL (31-35); MEAN CORPUSCULAR VOLUME 73.8 fL (81-99); MONOCYTES # (AUTO) 0.5 (0.2-0.8); MONOCYTES % 7.9 % (4.4-11.3); NEUTROPHILS # (AUTO) 4.4 (2.1-6.9); PLATELET COUNT 522 x10e3/uL (140-360); RED BLOOD COUNT 4.39 x10e6/uL (4.3-5.7); RED CELL DISTRIBUTION WIDTH 20.4 % (11.7-14.4)
[~2021-01-29] MED LIST changes: +BUPIVACAINE HCL 0.5% INJ 30 ML VIAL INJ ONE; +DEXAMETHASONE SOD PHOS INJ 4 MG/ML VIAL ONE; +FENTANYL CITRATE/PF 100MCG/2 ML INJ ONE; +IOPAMIDOL 300MG/ML 50ML INFUS..BTL IV ONE; +LIDOCAINE HCL 2% LOCAL INJ 5 ML SDV VIAL INJ ONE; +MIDAZOLAM HCL 2 MG/2 ML VIAL ONE; +ONDANSETRON HCL INJ 2MG/ML 2ML 2 MG/ML VIAL ONE; +POVIDONE IODINE 0.05% 0.05 % ML PO ONE; +PROPOFOL IV EMULSION 10 MG/ML 20 ML VIAL ONE; +SEVOFLURANE INHAL SOLN 250 ML PEN BTL ONE
[2021-01-29 13:45] VITALS: BP 127/71
== END | disposition home or self-care (01) ==
LOC: OR 09:20
PROVIDERS: ATTEND Specialist
DX: T84.091A Other mechanical complication of internal left hip prosthesis, initial encounter (principal); Y83.8 Other surgical procedures as the cause of abnormal reaction of the patient, or of later complication, without mention of misadventure at the time of the procedure; W19.XXXA Unspecified fall, initial encounter; Z88.0 Allergy status to penicillin; Z88.6 Allergy status to analgesic agent; Z01.812 Encounter for preprocedural laboratory examination; Z20.822 Contact with and (suspected) exposure to COVID-19; Z68.34 Body mass index [BMI] 34.0-34.9, adult; Z96.641 Presence of right artificial hip joint
CPT/HCPCS: 20610; 36415; 77002; 85025; 87071; 87075; 87205; J1100; J2001; J2250; J2405; J2704; J3010; Q9967; U0002; 76000

== ENCOUNTER 2021-02-06 11:22 | Emergency (ER) | payer MEDICARE ==
[~2021-02-06] VITALS: Ht 188 cm; Wt 120.2 kg
[~2021-02-06 11:22] MED LIST changes: -BUPIVACAINE HCL 0.5% INJ 30 ML VIAL INJ ONE; -DEXAMETHASONE SOD PHOS INJ 4 MG/ML VIAL ONE; -FENTANYL CITRATE/PF 100MCG/2 ML INJ ONE; -IOPAMIDOL 300MG/ML 50ML INFUS..BTL IV ONE; -LIDOCAINE HCL 2% LOCAL INJ 5 ML SDV VIAL INJ ONE; -MIDAZOLAM HCL 2 MG/2 ML VIAL ONE; -ONDANSETRON HCL INJ 2MG/ML 2ML 2 MG/ML VIAL ONE; -POVIDONE IODINE 0.05% 0.05 % ML PO ONE; -PROPOFOL IV EMULSION 10 MG/ML 20 ML VIAL ONE; -SEVOFLURANE INHAL SOLN 250 ML PEN BTL ONE
[2021-02-06] MEDS ORDERED: FENTANYL CITRATE/PF 100MCG/2 ML INJ IJ ONE (12:00)
[2021-02-06 16:18] VITALS: BP 122/78
== END 2021-02-06 16:21 | disposition home or self-care (01) ==
LOC: ER 11:43
DX: M25.552 Pain in left hip (principal); M25.551 Pain in right hip; G89.29 Other chronic pain; M06.9 Rheumatoid arthritis, unspecified; Z85.828 Personal history of other malignant neoplasm of skin; Z96.643 Presence of artificial hip joint, bilateral
CPT/HCPCS: 73522; 99284; J3010

== ENCOUNTER 2021-02-16 18:48 | Emergency (ER) | payer MEDICARE ==
[~2021-02-16] VITALS: Ht 188 cm; Wt 120.2 kg
[~2021-02-16 18:48] MED LIST changes: +TYLENOL # 31 EA PO
[2021-02-16] MEDS ORDERED: HYDROCODONE/APAP 10MG-325MG TAB PO ONE (19:30)
[2021-02-16] MEDS ORDERED: HYDROCODON-ACE1 EAC9 PO (19:33)
[2021-02-16 19:46] VITALS: BP 114/67
== END 2021-02-16 20:46 | disposition home or self-care (01) ==
LOC: ER 19:54
DX: M25.552 Pain in left hip (principal); M06.9 Rheumatoid arthritis, unspecified; Z96.642 Presence of left artificial hip joint; Z85.828 Personal history of other malignant neoplasm of skin
CPT/HCPCS: 99283

== ENCOUNTER 2021-02-18 09:39 | Emergency (ER) | payer MEDICARE ==
[~2021-02-18] VITALS: Ht 188 cm; Wt 120.2 kg
[~2021-02-18 09:39] MED LIST changes: +HYDROCODON-ACE1 EAC9 PO
[2021-02-18 09:53] VITALS: BP 112/70
== END 2021-02-18 09:58 | disposition home or self-care (01) ==
LOC: ER 09:58
DX: M25.552 Pain in left hip (principal); M06.9 Rheumatoid arthritis, unspecified
CPT/HCPCS: 99282

== ENCOUNTER 2021-02-18 10:18 | Inpatient (IN) | payer MEDICARE ==
[~2021-02-18] VITALS: Ht 188 cm; Wt 109.3 kg
[~2021-02-18 10:18] MED LIST changes: +ROPIVACAINE 246.25 MG, EPINEPHRINE HCL 1:1000 1ML 0.5 MG, CLONIDINE HCL 0.08 MG, KETORO... INJ ONE
[2021-02-18] MEDS ORDERED: GABAPENTIN 300 MG CAP ONE (10:26)
[2021-02-18] MEDS ORDERED: CELECOXIB 200 MG CAP ONE (10:26)
[2021-02-18] MEDS ORDERED: DEXAMETHASONE SOD PHOS 10 MG/1 ML VIAL ONE (10:26)
[2021-02-18] MEDS ORDERED: SODIUM CHLORIDE 0.9% 250ML 250 ML ONE (10:27)
[2021-02-18] MEDS ORDERED: Vancomycin IV 1 GM VIAL ONE ×2 (10:27→14:20)
[2021-02-18 10:48] LABS: BASOPHILS % 0.4 % (0.0-1.0); EOSINOPHILS # (AUTO) 0.1 (0.0-0.4); EOSINOPHILS % 0.7 % (0.0-6.0); HEMATOCRIT 29.4 % (38.2-49.6); HEMOGLOBIN 8.7 g/dL (14.0-18.0); LYMPHOCYTES % 9.9 % (18.0-39.1); MEAN CORPUSCULAR HEMOGLOBIN 21.1 pg (28-32); MEAN CORPUSCULAR HGB CONC 29.6 g/dL (31-35); MEAN CORPUSCULAR VOLUME 71.2 fL (81-99); MONOCYTES # (AUTO) 0.8 (0.2-0.8); MONOCYTES % 8.3 % (4.4-11.3); NEUTROPHILS # (AUTO) 7.7 (2.1-6.9); NEUTROPHILS % 80.1 % (38.7-80.0); PLATELET COUNT 860 x10e3/uL (140-360); RED BLOOD COUNT 4.13 x10e6/uL (4.3-5.7); RED CELL DISTRIBUTION WIDTH 19.3 % (11.7-14.4)
[2021-02-18] MEDS ORDERED: TRANEXAMIC ACID 1,000 MG/10 ML ML ONE (11:10)
[2021-02-18] MEDS ORDERED: SODIUM CHLORIDE 0.9% 500ML 500 ML ONE (11:10)
[2021-02-18] MEDS ORDERED: Vancomycin IV 1,000 MG ONE (11:10)
[2021-02-18 11:32] LABS: ANION GAP 14.4 mmol/L (8-16); CALCIUM 10.2 mg/dL (8.4-10.2); CREATININE, SERUM 1.15 mg/dL (0.72-1.25); POTASSIUM 4.4 mmol/L (3.5-5.1)
[2021-02-18] MEDS ORDERED: MIDAZOLAM HCL 2 MG/2 ML VIAL ONE (13:27)
[2021-02-18] MEDS ORDERED: FENTANYL CITRATE/PF 100MCG/2 ML INJ ONE (13:27)
[2021-02-18] MEDS ORDERED: PROPOFOL IV EMULSION 10 MG/ML 20 ML VIAL ONE (13:53)
[2021-02-18] MEDS ORDERED: PHENYLEPHRINE HCL 1% 10 MG/ML VIAL ONE (13:53)
[2021-02-18] MEDS ORDERED: SEVOFLURANE INHAL SOLN 250 ML PEN BTL ONE (13:53)
[2021-02-18] MEDS ORDERED: POVIDONE IODINE 0.05% 0.05 % ML PO ONE (13:53)
[2021-02-18] MEDS ORDERED: LIDOCAINE HCL 2% LOCAL INJ 5 ML SDV VIAL INJ ONE (13:53)
[2021-02-18] MEDS ORDERED: TOBRAMYCIN 1.2GM BULK BOTTLE ONE (14:20)
[2021-02-18] MEDS ORDERED: DIPHENHYDRAMINE HCL INJ 50 MG/ML VIAL IV PRN (15:30)
[2021-02-18] MEDS ORDERED: DOCUSATE SODIUM 100 MG CAP PO PRN (15:30)
[2021-02-18] MEDS ORDERED: ONDANSETRON HCL INJ 2MG/ML 2ML 2 MG/ML VIAL IV PRN (15:30)
[2021-02-18] MEDS ORDERED: ACETAMINOPHEN 650 MG SUPP PR PRN (15:30)
[2021-02-18] MEDS ORDERED: SUGAMMADEX SODIUM 200 MG/2 ML VIAL IV ONE (15:31)
[2021-02-18] MEDS ORDERED: HYDROMORPHONE 2MG/ML 2 MG/ML ML ONE (16:12)
[2021-02-18] MEDS: KETOROLAC TROMETHAMINE 30 MG/ML VIAL IV PRN (16:20)
[2021-02-18 19:30] VITALS: BP 94/70
[2021-02-18] MEDS: SODIUM CHLORIDE 0.9% 1000ML 1,000 ML IV SCH (19:43)
[2021-02-18 20:00] VITALS: BP 97/67
[2021-02-18] MEDS: CELECOXIB 200 MG CAP PO SCH (20:11)
[2021-02-18] MEDS ORDERED: ZOLPIDEM TARTRATE 5 MG TAB PO PRN (21:00)
[2021-02-19] VITALS (8 sets, daily range): BP systolic 104–129; BP diastolic 58–77
[2021-02-19] MEDS: Vancomycin IV 1 GM in SODIUM CHLORIDE 0.9% 250ML 250 ML IV SCH ×2 (00:55→12:22)
[2021-02-19 04:44] LABS: HEMOGLOBIN 7.7 g/dL (14.0-18.0)
[2021-02-19] MEDS: KETOROLAC TROMETHAMINE 30 MG/ML VIAL IV PRN ×3 (06:07→18:11)
[2021-02-19] MEDS: ASPIRIN 325 MG TAB PO SCH ×2 (08:20→16:52)
[2021-02-19] MEDS: CELECOXIB 200 MG CAP PO SCH ×2 (08:20→16:52)
[2021-02-19] MEDS: SODIUM CHLORIDE 0.9% 1000ML 1,000 ML IV SCH ×3 (08:20→22:12)
[2021-02-19] MEDS: HYDROCODONE/APAP 5MG-325MG TAB PO PRN ×4 (08:21→23:30)
[2021-02-19] MEDS: FERROUS SULFATE 325 MG TAB PO SCH (12:22)
[2021-02-19] MEDS ORDERED: ACETAMINOPHEN 1000 MG/100 ML IV PRN (15:30)
[2021-02-20] VITALS: BP 120/66
[2021-02-20] MEDS: KETOROLAC TROMETHAMINE 30 MG/ML VIAL IV PRN ×4 (00:21→18:49)
[2021-02-20] MEDS: Vancomycin IV 1.25 GM in SODIUM CHLORIDE 0.9% 250ML 250 ML IV SCH ×2 (00:45→13:39)
[2021-02-20 04:00] VITALS: BP 131/69
[2021-02-20] MEDS: HYDROCODONE/APAP 5MG-325MG TAB PO PRN ×4 (04:23→16:50)
[2021-02-20 05:15] LABS: BASOPHILS % 0.4 % (0.0-1.0); EOSINOPHILS # (AUTO) 0.1 (0.0-0.4); EOSINOPHILS % 0.8 % (0.0-6.0); LYMPHOCYTES # (AUTO) 1.7 (1.0-3.2); LYMPHOCYTES % 20.1 % (18.0-39.1); MEAN CORPUSCULAR HEMOGLOBIN 23.2 pg (28-32); MEAN CORPUSCULAR HGB CONC 31.2 g/dL (31-35); MONOCYTES # (AUTO) 0.6 (0.2-0.8); MONOCYTES % 6.8 % (4.4-11.3); NEUTROPHILS # (AUTO) 5.8 (2.1-6.9); NEUTROPHILS % 70.6 % (38.7-80.0); PLATELET COUNT 712 x10e3/uL (140-360); RED BLOOD COUNT 2.67 x10e6/uL (4.3-5.7); RED CELL DISTRIBUTION WIDTH 20.9 % (11.7-14.4)
[2021-02-20 05:26] LABS: HEMATOCRIT 19.9 % (38.2-49.6); HEMOGLOBIN 6.2 g/dL (14.0-18.0)
[2021-02-20 05:27] LABS: MEAN CORPUSCULAR VOLUME 74.5 fL (81-99)
[2021-02-20 05:41] LABS: ANION GAP 11.7 mmol/L (8-16); CALCIUM 7.9 mg/dL (8.4-10.2); POTASSIUM 4.7 mmol/L (3.5-5.1)
[2021-02-20 07:26] VITALS: BP 131/72
[2021-02-20] MEDS: FERROUS SULFATE 325 MG TAB PO SCH (08:09)
[2021-02-20] MEDS: CELECOXIB 200 MG CAP PO SCH ×2 (08:09→16:56)
[2021-02-20] MEDS: ASPIRIN 325 MG TAB PO SCH ×2 (08:09→16:56)
[2021-02-20] MEDS ORDERED: SODIUM CHLORIDE 0.9% 250ML 250 ML ONE ×2 (08:13→16:52)
[2021-02-20 09:01] VITALS: BP 131/72
[2021-02-20] MEDS ORDERED: ONDANSETRON HCL 4 MG ORAL DISINTEGRATING TAB PO PRN (09:30)
[2021-02-20] MEDS: SODIUM CHLORIDE 0.9% 1000ML 1,000 ML IV SCH (11:45)
[2021-02-20 15:04] VITALS: BP 121/62
[2021-02-20 20:00] VITALS: BP 142/74
[2021-02-20] MEDS: Cefazolin 1 GM in SODIUM CHLORIDE 0.9% 50ML 50 ML IV SCH (20:33)
[2021-02-20 22:50] LABS: HEMATOCRIT 23.5 % (38.2-49.6); HEMOGLOBIN 7.4 g/dL (14.0-18.0)
[2021-02-21] VITALS: BP 129/57
[2021-02-21] MEDS: HYDROCODONE/APAP 5MG-325MG TAB PO PRN ×3 (00:10→10:32)
[2021-02-21 00:31] VITALS: BP 129/57
[2021-02-21] MEDS: KETOROLAC TROMETHAMINE 30 MG/ML VIAL IV PRN ×3 (00:52→13:20)
[2021-02-21] MEDS: Cefazolin 1 GM in SODIUM CHLORIDE 0.9% 50ML 50 ML IV SCH ×2 (01:20→09:21)
[2021-02-21 04:00] VITALS: BP 148/77
[2021-02-21 05:10] LABS: BASOPHILS # (AUTO) 0.1 (0.0-0.1); BASOPHILS % 0.8 % (0.0-1.0); EOSINOPHILS # (AUTO) 0.1 (0.0-0.4); EOSINOPHILS % 1.2 % (0.0-6.0); HEMATOCRIT 23.6 % (38.2-49.6); HEMOGLOBIN 7.2 g/dL (14.0-18.0); LYMPHOCYTES # (AUTO) 1.8 (1.0-3.2); LYMPHOCYTES % 24.6 % (18.0-39.1); MEAN CORPUSCULAR HEMOGLOBIN 23.5 pg (28-32); MEAN CORPUSCULAR HGB CONC 30.5 g/dL (31-35); MEAN CORPUSCULAR VOLUME 77.1 fL (81-99); MONOCYTES # (AUTO) 0.5 (0.2-0.8); MONOCYTES % 7.2 % (4.4-11.3); NEUTROPHILS # (AUTO) 4.6 (2.1-6.9); NEUTROPHILS % 62.9 % (38.7-80.0); PLATELET COUNT 757 x10e3/uL (140-360); RED BLOOD COUNT 3.06 x10e6/uL (4.3-5.7); RED CELL DISTRIBUTION WIDTH 20.9 % (11.7-14.4)
[2021-02-21] MEDS: SODIUM CHLORIDE 0.9% 1000ML 1,000 ML IV SCH ×2 (06:41→07:45)
[2021-02-21 07:26] VITALS: BP 133/76
[2021-02-21] MEDS: CELECOXIB 200 MG CAP PO SCH (07:43)
[2021-02-21] MEDS: ASPIRIN 325 MG TAB PO SCH (07:43)
[2021-02-21] MEDS: FERROUS SULFATE 325 MG TAB PO SCH (07:43)
[2021-02-21] MEDS ORDERED: RIFAMPIN 300 MG CAP PO SCH (09:00)
[2021-02-21 09:19] VITALS: BP 133/76
[2021-02-21] MEDS ORDERED: CEFAZOLIN SODIUM1 GM IV (10:57)
[2021-02-21 11:10] VITALS: BP 127/69
== END 2021-02-21 13:21 | DRG 467 ==
LOC: OR 10:18 → PACU V 15:30 → MED/SURG 19:26
PROVIDERS: ADMIT Specialist; ATTEND Specialist
PROC: 0SPB0JZ Removal of Synthetic Substitute from Left Hip Joint, Open Approach (ICD-10-PCS; 2021-02-18)
PROC: 0SBB0ZZ Excision of Left Hip Joint, Open Approach (ICD-10-PCS; 2021-02-18)
PROC: 30233N1 Transfusion of Nonautologous Red Blood Cells into Peripheral Vein, Percutaneous Approach (ICD-10-PCS; 2021-02-18)
PROC: 0SRB0EZ Replacement of Left Hip Joint with Articulating Spacer, Open Approach (ICD-10-PCS; principal; 2021-02-18 13:30)
PROC: 02HV33Z Insertion of Infusion Device into Superior Vena Cava, Percutaneous Approach (ICD-10-PCS; 2021-02-19)
DX: T84.52XA Infection and inflammatory reaction due to internal left hip prosthesis, initial encounter (principal); D62 Acute posthemorrhagic anemia; M86.9 Osteomyelitis, unspecified; T84.031A Mechanical loosening of internal left hip prosthetic joint, initial encounter; Z20.822 Contact with and (suspected) exposure to COVID-19; M16.0 Bilateral primary osteoarthritis of hip; Z96.643 Presence of artificial hip joint, bilateral; B95.61 Methicillin susceptible Staphylococcus aureus infection as the cause of diseases classified elsewhere
CPT/HCPCS: 36415; 36569; 71045; 72170; 80048; 80202; 85014; 85018; 85025; 86850; 86900; 86920; 87071; 87075; 87186; 87205; 97139; 99251; C1713; C1776; J0171; J0690; J1100; J1885; J2001; J2250; J2370; J2795; J3010; J3370; J7030; J7040; J7050; P9016; U0002

== ENCOUNTER 2021-03-25 07:44 | Inpatient (IN) | payer MEDICARE ==
[~2021-03-25 07:44] MED LIST changes: +CEFAZOLIN SODIUM1 GM IV; -ROPIVACAINE 246.25 MG, EPINEPHRINE HCL 1:1000 1ML 0.5 MG, CLONIDINE HCL 0.08 MG, KETORO... INJ ONE
[2021-03-25] MEDS ORDERED: ROPIVACAINE 246.25 MG, EPINEPHRINE HCL 1:1000 1ML 0.5 MG, CLONIDINE HCL 0.08 MG, KETORO... INJ ONE ×5 (08:00)
[2021-03-25] MEDS ORDERED: GABAPENTIN 300 MG CAP ONE (08:13)
[2021-03-25] MEDS ORDERED: DEXAMETHASONE SOD PHOS 10 MG/1 ML VIAL ONE (08:13)
[2021-03-25] MEDS ORDERED: CELECOXIB 200 MG CAP ONE (08:13)
[2021-03-25] MEDS ORDERED: SODIUM CHLORIDE 0.9% 50ML 100 ML ONE (08:14)
[2021-03-25] MEDS ORDERED: PERCOCET 10-321 EACH PO (08:52)
[2021-03-25] MEDS ORDERED: MELOXICAM7.5 MG PO (08:52)
[2021-03-25] MEDS ORDERED: SODIUM CHLORIDE 0.9% 500ML 500 ML ONE (08:55)
[2021-03-25] MEDS ORDERED: Vancomycin IV 500 MG ONE (09:00)
[2021-03-25] MEDS ORDERED: HYDROMORPHONE 2MG/ML 2 MG/ML ML ONE ×2 (09:41→13:59)
[2021-03-25 09:55] LABS: BASOPHILS % 0.8 % (0.0-1.0); EOSINOPHILS # (AUTO) 0.1 (0.0-0.4); EOSINOPHILS % 2.7 % (0.0-6.0); HEMATOCRIT 31.2 % (38.2-49.6); HEMOGLOBIN 9.4 g/dL (14.0-18.0); LYMPHOCYTES # (AUTO) 0.9 (1.0-3.2); LYMPHOCYTES % 17.9 % (18.0-39.1); MEAN CORPUSCULAR HEMOGLOBIN 24.4 pg (28-32); MEAN CORPUSCULAR HGB CONC 30.1 g/dL (31-35); MEAN CORPUSCULAR VOLUME 80.8 fL (81-99); MONOCYTES # (AUTO) 0.4 (0.2-0.8); MONOCYTES % 6.7 % (4.4-11.3); NEUTROPHILS # (AUTO) 3.7 (2.1-6.9); NEUTROPHILS % 71.3 % (38.7-80.0); PLATELET COUNT 351 x10e3/uL (140-360); RED BLOOD COUNT 3.86 x10e6/uL (4.3-5.7); RED CELL DISTRIBUTION WIDTH 20.1 % (11.7-14.4)
[2021-03-25] MEDS ORDERED: SODIUM CHLORIDE 0.9% 250ML 250 ML ONE (09:55)
[2021-03-25] MEDS ORDERED: Vancomycin IV 1 GM VIAL ONE (09:55)
[2021-03-25 10:12] LABS: ANION GAP 11.6 mmol/L (8-16); CALCIUM 9.2 mg/dL (8.4-10.2); CREATININE, SERUM 0.78 mg/dL (0.72-1.25); POTASSIUM 4.6 mmol/L (3.5-5.1)
[2021-03-25] MEDS ORDERED: TRANEXAMIC ACID 1,000 MG/10 ML ML ONE (10:20)
[2021-03-25] MEDS ORDERED: DIPHENHYDRAMINE HCL INJ 50 MG/ML VIAL IV PRN (13:45)
[2021-03-25] MEDS ORDERED: ACETAMINOPHEN 650 MG SUPP PR PRN (13:45)
[2021-03-25] MEDS ORDERED: DOCUSATE SODIUM 100 MG CAP PO PRN (13:45)
[2021-03-25] MEDS ORDERED: HYDROCODONE/APAP 7.5MG-325MG 1 EA TAB PO PRN (13:45)
[2021-03-25] MEDS ORDERED: HYDROCODONE/APAP 5MG-325MG TAB PO PRN (13:45)
[2021-03-25] MEDS ORDERED: ONDANSETRON HCL INJ 2MG/ML 2ML 2 MG/ML VIAL IV PRN (13:45)
[2021-03-25] MEDS ORDERED: FENTANYL CITRATE/PF 100MCG/2 ML INJ ONE ×2 (14:07→15:26)
[2021-03-25] MEDS: SODIUM CHLORIDE 0.9% 1000ML 1,000 ML IV SCH ×2 (16:43→23:39)
[2021-03-25] MEDS ORDERED: CELECOXIB 100 MG CAP PO SCH (17:00)
[2021-03-25 17:01] VITALS: BP 110/55
[2021-03-25] MEDS: ASPIRIN 325 MG TAB PO SCH (17:17)
[2021-03-25] MEDS ORDERED: ACETAMINOPHEN 1000 MG/100 ML 100 ML IV ONE (19:53)
[2021-03-25 20:00] VITALS: BP 105/66
[2021-03-25 21:00] VITALS: BP 105/66
[2021-03-25] MEDS ORDERED: ZOLPIDEM TARTRATE 5 MG TAB PO PRN (21:00)
[2021-03-25] MEDS: Vancomycin IV 1 GM in SODIUM CHLORIDE 0.9% 250ML 250 ML IV SCH (21:10)
[2021-03-25] MEDS: KETOROLAC TROMETHAMINE 30 MG/ML VIAL IV PRN (23:40)
[2021-03-26] VITALS: BP 114/66
[2021-03-26 04:00] VITALS: BP 122/70
[2021-03-26 05:04] LABS: BASOPHILS % 0.4 % (0.0-1.0); EOSINOPHILS # (AUTO) 0.1 (0.0-0.4); EOSINOPHILS % 0.9 % (0.0-6.0); HEMATOCRIT 24.1 % (38.2-49.6); HEMOGLOBIN 7.3 g/dL (14.0-18.0); LYMPHOCYTES # (AUTO) 1.4 (1.0-3.2); LYMPHOCYTES % 20.5 % (18.0-39.1); MEAN CORPUSCULAR HEMOGLOBIN 24.3 pg (28-32); MEAN CORPUSCULAR HGB CONC 30.3 g/dL (31-35); MEAN CORPUSCULAR VOLUME 80.1 fL (81-99); MONOCYTES # (AUTO) 0.7 (0.2-0.8); MONOCYTES % 10.8 % (4.4-11.3); NEUTROPHILS # (AUTO) 4.6 (2.1-6.9); NEUTROPHILS % 67.1 % (38.7-80.0); PLATELET COUNT 423 x10e3/uL (140-360); RED BLOOD COUNT 3.01 x10e6/uL (4.3-5.7); RED CELL DISTRIBUTION WIDTH 20.4 % (11.7-14.4)
[2021-03-26 05:26] LABS: ANION GAP 12.7 mmol/L (8-16); CALCIUM 8.2 mg/dL (8.4-10.2); CREATININE, SERUM 1.18 mg/dL (0.72-1.25); POTASSIUM 4.7 mmol/L (3.5-5.1)
[2021-03-26] MEDS: KETOROLAC TROMETHAMINE 30 MG/ML VIAL IV PRN (05:42)
[2021-03-26] MEDS: ASPIRIN 325 MG TAB PO SCH (07:41)
[2021-03-26 08:01] VITALS: BP 130/69
[2021-03-26 08:18] VITALS: BP 130/69
[2021-03-26] MEDS: Vancomycin IV 1 GM in SODIUM CHLORIDE 0.9% 250ML 250 ML IV SCH (08:18)
[2021-03-26] MEDS ORDERED: FERROUS SULFATE 325 MG TAB PO SCH (09:00)
[2021-03-26] MEDS ORDERED: CELECOXIB 200 MG CAP PO SCH (09:00)
[2021-03-26] MEDS: SODIUM CHLORIDE 0.9% 1000ML 1,000 ML IV SCH (09:37)
[2021-03-26] MEDS ORDERED: ACETAMINOPHEN 1000 MG/100 ML IV PRN (13:45)
[2021-03-26] MEDS ORDERED: Cefazolin 1 GM in SODIUM CHLORIDE 0.9% 50ML 50 ML IV SCH (14:00)
[2021-03-26] MEDS ORDERED: ONDANSETRON HCL 4 MG ORAL DISINTEGRATING TAB PO PRN (14:00)
== END 2021-03-26 14:15 | DRG 467 ==
LOC: OR 07:44 → PACU V 13:39 → MED/SURG 16:22
PROVIDERS: ADMIT Specialist; ATTEND Specialist
PROC: 0SWB0JZ Revision of Synthetic Substitute in Left Hip Joint, Open Approach (ICD-10-PCS; principal; 2021-03-25 09:30)
DX: T84.621A Infection and inflammatory reaction due to internal fixation device of left femur, initial encounter (principal); M86.8X8 Other osteomyelitis, other site; N17.9 Acute kidney failure, unspecified; D50.9 Iron deficiency anemia, unspecified; E66.9 Obesity, unspecified; Z88.5 Allergy status to narcotic agent; Z88.0 Allergy status to penicillin; Z96.643 Presence of artificial hip joint, bilateral; Z86.19 Personal history of other infectious and parasitic diseases; Z68.34 Body mass index [BMI] 34.0-34.9, adult
CPT/HCPCS: 36415; 72170; 80048; 85025; 86850; 86900; 86920; 87071; 87075; 87186; 87205; 93005; 97139; C1713; C1776; J0171; J0690; J1100; J1885; J2405; J2795; J3010; J3370; J7030; J7040; J7050